=== PATIENT | male | born 1955 | race Hispanic/Latino ===

== ENCOUNTER 2017-06-26 12:35 | Inpatient (IN) | payer MEDICAID ==
[2017-06-26 18:43] VITALS: BMI 28.7
--- NOTE | 2017-06-26 19:52 | CP.PCM.HP ---
History of Present Illness - History of Present Illness History of Present Illness: 62 yo male with history of HTN, HLD and ETOH abuse admitted at [facility] on 2017 because of sudden onset of left sided weakness causing him to fall down. Patient was also noted to have difficulty in speech associated with left facial weakness. CT scan showed acute lacunar infarct on the right putamen. Today he was transferred to [facility] and admitted at Acute Rehab to continue his PT. Present on Admission - Present on Admission Any Indicators Present on Admission: No History of DVT/PE: No History of Uncontrolled Diabetes: No Urinary Catheter: No Decubitus Ulcer Present: No Review of Systems - Review of Systems All systems: reviewed and no additional remarkable complaints except (aside from those mentioned above, 12 point system review were negative by me) Past Patient History - Tetanus Immunizations Tetanus Immunization: Unknown - Past Social History Smoking Status: Former Smoker Alcohol: > 2 Drinks/Day Drugs: Cocaine Home Situation {Lives}: Alone - CARDIAC Hx Hypercholesterolemia: Yes Hx Hypertension: Yes - PULMONARY Hx Respiratory Disorders: No - NEUROLOGICAL Hx Neurological Disorder: No - HEENT Hx Cataracts: Yes (had cataract surgery on left eye 3 months ago) 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) - RENAL Hx Chronic Kidney Disease: No - ENDOCRINE/METABOLIC Hx Endocrine Disorders: No - HEMATOLOGICAL/ONCOLOGICAL Hx Blood Disorders: No - INTEGUMENTARY Hx Dermatological Problems: No - MUSCULOSKELETAL/RHEUMATOLOGICAL Hx Musculoskeletal Disorders: No - GASTROINTESTINAL Hx Gastrointestinal Disorders: No - GENITOURINARY/GYNECOLOGICAL Hx Genitourinary Disorders: No - PSYCHIATRIC Hx Psychophysiologic Disorder: No - SURGICAL HISTORY Hx Cataract Extraction: Yes (3 months ago, left eye) - ANESTHESIA Hx Anesthesia: Yes Hx Anesthesia Reactions: No Meds Allergies/Adverse Reactions: Allergies Allergy/AdvReac Type Severity Reaction Status Date / Time No Known Allergies Allergy Verified 06/26/17 19:34 Physical Exam - Constitutional Appears: No Acute Distress - Head Exam Head Exam: ATRAUMATIC - Eye Exam Eye Exam: Conjunctival injection (left eye), PERRL. absent: Scleral icterus - ENT Exam ENT Exam: Mucous Membranes Moist - Neck Exam Neck exam: Negative for: Meningismus - Respiratory Exam Respiratory Exam: absent: Rales, Rhonchi, Wheezes, Respiratory Distress - Cardiovascular Exam Cardiovascular Exam: REGULAR RHYTHM, +S1, +S2 - GI/Abdominal Exam GI & Abdominal Exam: Soft. absent: Tenderness - Rectal Exam Rectal Exam: Deferred - Neurological Exam Neurological exam: Alert, Oriented x3 - Psychiatric Exam Psychiatric exam: Normal Affect - Skin Skin Exam: Dry, Intact Assessment & Plan - Assessment and Plan (Free Text) Assessment: 62 yo male with history of HTN, HLD and ETOH abuse admitted at [facility] on 2017 because of sudden onset of left sided weakness causing him to fall down. Patient was also noted to have difficulty in speech associated with left facial weakness. CT scan showed acute lacunar infarct on the right putamen. Today he was transferred to [facility] and admitted at Acute Rehab to continue his PT. 1. Acute CVA refer to PT for evaluation and management physiatry consult with Dr Hayes continue ASA, Plavix, statin and BP control 2. HTN BP stable continue Amlodipine and Lisinopril 3. HLD Atorvastatin 80mg PO HS 4. DVT prophylaxis Lovenox 40mg SC daily
[2017-06-27] MEDS ORDERED: Enoxaparin 40 mg Syringe SC SCH (09:00)
[2017-06-27 09:13] LABS: ALB/GLOB RATIO 1.3 (1.0-2.1); ALBUMIN 4.1 g/dL (3.5-5.0); ALT/SGPT 83 U/L (21-72); AST/SGOT 41 U/L (17-59); BLOOD UREA NITROGEN 17 mg/dl (9-20); CALCIUM 9.5 mg/dL (8.4-10.2); GFR AFRICAN-AMERICAN > 60; GFR NON-AFRICAN AMERICAN > 60
[2017-06-27 09:40] LABS: BASO % 0.4 % (0.0-2.0); EOS # 0.2 K/uL (0.0-0.7); EOS % 2.6 % (0.0-4.0); LYMPH # 1.1 K/uL (1.0-4.3); MEAN CELL VOLUME 92.6 fl (80.0-94.0); MEAN CORPUSCULAR HEMOGLOBIN 31.7 pg (27.0-31.0); MEAN CORPUSCULAR HGB CONC 34.2 g/dL (33.0-37.0); MEAN PLATELET VOLUME 9.5 fl (7.2-11.7); MONO # 0.7 K/uL (0.0-0.8); MONO % 11.1 % (0.0-10.0); NEUT # 4.3 K/uL (1.8-7.0); NEUT % 67.9 % (50.0-75.0); RBC 4.41 Mil/uL (4.40-5.90); RED CELL DISTRIBUTION WIDTH 13.2 % (11.5-14.5); WHITE BLOOD COUNT 6.4 K/uL (4.8-10.8)
[2017-06-27] MEDS: Pantoprazole 40 mg EC Tab PO SCH (10:00)
--- NOTE | 2017-06-27 12:53 | PCM.OPOC ---
Physiatry Overall Plan of Care - Overall Plan of Care Estimated Length of Stay in Weeks: 3 Rehab Impairment: Mobility, Gait, Balance, Coordination Etiologic Diagnosis: Cerebrovascular Accident - Anticipated Interventions Physical Therapy:: Yes Occupational Therapy:: Yes Speech Therapy:: Yes Recreational Therapy:: Yes - Therapy Goals Bed Mobility: Independent Ambulation: Supervision Functional Positional Changes:: Independent - Functional Outcomes Functional Outcomes: fair - Discharge Plan Identification of Barriers to Discharge: Home Situation Discharge Destination: Home
--- NOTE | 2017-06-27 12:55 | CP.PCM.CON ---
History of Present Illness - History of Present Illness History of Present Illness: 62 year old admitted for acute rehab with diagnosis of Cva and left sided weakness, With PMh of HTn, Non compliance and Etoh abuse Review of Systems - Musculoskeletal Musculoskeletal: Muscle Weakness - Neurological Neurological: Weakness Past Patient History - Tetanus Immunizations Tetanus Immunization: Unknown - Past Medical History & Family History Past Medical History?: Yes - Past Social History Smoking Status: Former Smoker Alcohol: > 2 Drinks/Day Drugs: Cocaine Home Situation {Lives}: Alone - CARDIAC Hx Hypercholesterolemia: Yes Hx Hypertension: Yes - PULMONARY Hx Respiratory Disorders: No - NEUROLOGICAL Hx Neurological Disorder: No - HEENT Hx Cataracts: Yes (had cataract surgery on left eye 3 months ago) 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) - RENAL Hx Chronic Kidney Disease: No - ENDOCRINE/METABOLIC Hx Endocrine Disorders: No - HEMATOLOGICAL/ONCOLOGICAL Hx Blood Disorders: No - INTEGUMENTARY Hx Dermatological Problems: No - MUSCULOSKELETAL/RHEUMATOLOGICAL Hx Musculoskeletal Disorders: No - GASTROINTESTINAL Hx Gastrointestinal Disorders: No - GENITOURINARY/GYNECOLOGICAL Hx Genitourinary Disorders: No - PSYCHIATRIC Hx Psychophysiologic Disorder: No - SURGICAL HISTORY Hx Cataract Extraction: Yes (3 months ago, left eye) - ANESTHESIA Hx Anesthesia: Yes Hx Anesthesia Reactions: No Meds Allergies/Adverse Reactions: Allergies Allergy/AdvReac Type Severity Reaction Status Date / Time No Known Allergies Allergy Verified 06/26/17 19:34 - Medications Medications: Current Medications Amlodipine Besylate (Norvasc) 10 mg PO DAILY [facility] Last Admin: 06/27/17 08:10 Dose: 10 mg Aspirin (Ecotrin) 81 mg PO DAILY [facility] Last Admin: 06/27/17 08:09 Dose: 81 mg Atorvastatin Calcium (Lipitor) 80 mg PO HS [facility] Last Admin: 06/26/17 22:21 Dose: 80 mg Clopidogrel Bisulfate (Plavix) 75 mg PO DAILY [facility] Last Admin: 06/27/17 08:11 Dose: 75 mg Docusate Sodium (Colace) 100 mg PO BID [facility] Last Admin: 06/27/17 08:09 Dose: 100 mg Enoxaparin Sodium (Lovenox) 40 mg SC DAILY [facility] PRN Reason: Protocol Ibuprofen (Motrin Tab) 400 mg PO Q6 PRN PRN Reason: pain 4-10 Lisinopril (Zestril) 10 mg PO DAILY [facility] Last Admin: 06/27/17 08:11 Dose: 10 mg Pantoprazole Sodium (Protonix Ec Tab) 40 mg PO DAILY [facility] Physical Exam - Head Exam Head Exam: ATRAUMATIC, NORMAL INSPECTION, NORMOCEPHALIC - Eye Exam Eye Exam: EOMI, Normal appearance Pupil Exam: NORMAL ACCOMODATION, PERRL - ENT Exam ENT Exam: Mucous Membranes Moist, Normal Exam - Neck Exam Neck exam: Positive for: Normal Inspection - Respiratory Exam Respiratory Exam: Clear to Auscultation Bilateral, NORMAL BREATHING PATTERN - Cardiovascular Exam Cardiovascular Exam: REGULAR RHYTHM - GI/Abdominal Exam GI & Abdominal Exam: Normal Bowel Sounds - Rectal Exam Rectal Exam: NORMAL INSPECTION - Exam External exam: NORMAL EXTERNAL EXAM - Extremities Exam Extremities exam: Positive for: normal inspection Additional comments: left sided weakness - Back Exam Back exam: NORMAL INSPECTION - Neurological Exam Neurological exam: Alert - Psychiatric Exam Psychiatric exam: Normal Mood - Skin Skin Exam: Dry, Normal Color Results - Vital Signs Recent Vital Signs: Last Vital Signs Temp 98.4 F 06/27/17 08:47 Pulse 64 06/27/17 08:47 Resp 19 06/27/17 08:47 BP 133/72 06/27/17 08:47 Pulse Ox 97 06/27/17 08:47 - Labs Result Diagrams: 06/27/17 04:00 06/27/17 04:00 Labs: Laboratory Results - last 24 hr 06/27/17 06/27/17 04:00 04:00 WBC 6.4 RBC 4.41 Hgb 14.0 Hct 40.8 MCV 92.6 MCH 31.7 H MCHC 34.2 RDW 13.2 Plt Count 219 MPV 9.5 Neut % (Auto) 67.9 Lymph % (Auto) 18.0 L Oliver % (Auto) 11.1 H Eos % (Auto) 2.6 Baso % (Auto) 0.4 Neut # (Auto) 4.3 Lymph # (Auto) 1.1 Oliver # (Auto) 0.7 Eos # (Auto) 0.2 Baso # (Auto) 0.0 Sodium 140 Potassium 4.4 Chloride 98 Carbon Dioxide 29 Anion Gap 17 BUN 17 Creatinine 0.7 L Est GFR ( Amer) > 60 Est GFR (Non-Af Amer) > 60 Random Glucose 110 Calcium 9.5 Total Bilirubin 0.5 AST 41 ALT 83 H Alkaline Phosphatase 53 Total Protein 7.2 Albumin 4.1 Globulin 3.0 Albumin/Globulin Ratio 1.3 Assessment & Plan (1) CVA (cerebral vascular accident) Assessment and Plan: plan for physical, occupational, rec and speech therapy for range of motion, strengthening transfers and gait training. covering for Dr Abigail Hayes to follow patient Status: Acute
[2017-06-27] MEDS: Enoxaparin 40 mg Syringe SC SCH (13:00)
[2017-06-27] MEDS: Ammonium Lactate 12% Cream (140 g) TOP SCH (17:58)
--- NOTE | 2017-06-27 19:56 | CP.PCM.PN ---
Subjective - Date & Time of Evaluation Date of Evaluation: 06/27/17 Time of Evaluation: 14:00 - Subjective Subjective: no acute complaints at present resting in bed Objective - Vital Signs/Intake and Output Vital Signs (last 24 hours): Temp Pulse Resp BP Pulse Ox 98.4 F 64 19 133/72 97 06/27/17 08:47 06/27/17 08:47 06/27/17 08:47 06/27/17 08:47 06/27/17 08:47 - Medications Medications: Current Medications Amlodipine Besylate (Norvasc) 10 mg PO DAILY [facility] Last Admin: 06/27/17 08:10 Dose: 10 mg Aspirin (Ecotrin) 81 mg PO DAILY [facility] Last Admin: 06/27/17 08:09 Dose: 81 mg Atorvastatin Calcium (Lipitor) 80 mg PO HS [facility] Last Admin: 06/26/17 22:21 Dose: 80 mg Clopidogrel Bisulfate (Plavix) 75 mg PO DAILY [facility] Last Admin: 06/27/17 08:11 Dose: 75 mg Docusate Sodium (Colace) 100 mg PO BID [facility] Last Admin: 06/27/17 17:58 Dose: 100 mg Enoxaparin Sodium (Lovenox) 40 mg SC DAILY [facility] PRN Reason: Protocol Last Admin: 06/27/17 13:00 Dose: 40 mg Ibuprofen (Motrin Tab) 400 mg PO Q6 PRN PRN Reason: pain 4-10 Last Admin: 06/27/17 16:14 Dose: 400 mg Lactic Acid (Lac-Hydrin 12% Cream (140 G)) 1 ea TOP BID [facility] Last Admin: 06/27/17 17:58 Dose: 1 applic Lisinopril (Zestril) 10 mg PO DAILY [facility] Last Admin: 06/27/17 08:11 Dose: 10 mg Pantoprazole Sodium (Protonix Ec Tab) 40 mg PO DAILY [facility] Last Admin: 06/27/17 10:00 Dose: 40 mg - Labs Labs: 06/27/17 04:00 06/27/17 04:00 - Head Exam Head Exam: ATRAUMATIC, NORMAL INSPECTION, NORMOCEPHALIC - Eye Exam Eye Exam: EOMI, Normal appearance Pupil Exam: NORMAL ACCOMODATION, PERRL - ENT Exam ENT Exam: Mucous Membranes Moist, Normal Exam - Neck Exam Neck Exam: Full ROM, Normal Inspection - Respiratory Exam Respiratory Exam: Clear to Ausculation Bilateral, NORMAL BREATHING PATTERN - Cardiovascular Exam Cardiovascular Exam: REGULAR RHYTHM - GI/Abdominal Exam GI & Abdominal Exam: Soft, Normal Bowel Sounds - Rectal Exam Rectal Exam: NORMAL INSPECTION - Exam External exam: NORMAL EXTERNAL EXAM - Extremities Exam Extremities Exam: Full ROM, Normal Capillary Refill, Normal Inspection - Back Exam Back Exam: NORMAL INSPECTION - Neurological Exam Neurological Exam: Alert, Awake Neuro motor strength exam: Left Upper Extremity: 2/1, Right Upper Extremity: 3, Left Lower Extremity: 2/1, Right Lower Extremity: 3 - Psychiatric Exam Psychiatric exam: Normal Affect, Normal Mood - Skin Skin Exam: Normal Color Assessment and Plan (1) CVA (cerebral vascular accident) Assessment & Plan: plan for physical, occupational rec and speech therapy covering for Dr Hayes Status: Acute
[2017-06-28] MEDS: Enoxaparin 40 mg Syringe SC SCH (09:42)
[2017-06-28] MEDS: Ammonium Lactate 12% Cream (140 g) TOP SCH ×2 (09:45→16:31)
[2017-06-28] MEDS: Pantoprazole 40 mg EC Tab PO SCH (09:47)
[2017-06-29] MEDS: Enoxaparin 40 mg Syringe SC SCH (08:47)
[2017-06-29] MEDS: Pantoprazole 40 mg EC Tab PO SCH (08:48)
[2017-06-29] MEDS: Ammonium Lactate 12% Cream (140 g) TOP SCH ×2 (08:53→16:30)
--- NOTE | 2017-06-29 12:52 | CP.PCM.PN ---
Subjective - Date & Time of Evaluation Date of Evaluation: 06/29/17 Time of Evaluation: 12:52 - Subjective Subjective: pt doing well no complaints at this time denies cp sob n/v/c/d hd stable nad Objective - Vital Signs/Intake and Output Vital Signs (last 24 hours): Temp Pulse Resp BP Pulse Ox 98.3 F 94 H 20 141/74 97 06/29/17 10:00 06/29/17 10:00 06/29/17 10:00 06/29/17 10:00 06/29/17 10:00 Intake and Output: Vitals Reviewed GEN: WDWN, alert, cooperative HEENT: NCAT, PERRL, EOMI HEART: RRR, +S1S2, NO MRG LUNG: CTAB, NO WRR ABD: soft, NT, ND, No HSM, No masses EXT: normal pedal pulses, normal capillary refill NEURO: awake, alert SKIN: warm, dry PSYCH: normal mood, normal affect - Medications Medications: Current Medications Amlodipine Besylate (Norvasc) 10 mg PO DAILY [facility] Last Admin: 06/29/17 08:47 Dose: 10 mg Aspirin (Ecotrin) 81 mg PO DAILY [facility] Last Admin: 06/29/17 08:47 Dose: 81 mg Atorvastatin Calcium (Lipitor) 80 mg PO HS [facility] Last Admin: 06/28/17 21:09 Dose: 80 mg Clopidogrel Bisulfate (Plavix) 75 mg PO DAILY [facility] Last Admin: 06/29/17 08:47 Dose: 75 mg Docusate Sodium (Colace) 100 mg PO BID [facility] Last Admin: 06/29/17 08:46 Dose: 100 mg Enoxaparin Sodium (Lovenox) 40 mg SC DAILY [facility] PRN Reason: Protocol Last Admin: 06/29/17 08:47 Dose: 40 mg Ibuprofen (Motrin Tab) 400 mg PO Q6 PRN PRN Reason: pain 4-10 Last Admin: 06/29/17 08:48 Dose: 400 mg Lactic Acid (Lac-Hydrin 12% Cream (140 G)) 1 ea TOP BID [facility] Last Admin: 06/29/17 08:53 Dose: 1 applic Lisinopril (Zestril) 10 mg PO DAILY [facility] Last Admin: 06/29/17 08:48 Dose: 10 mg Pantoprazole Sodium (Protonix Ec Tab) 40 mg PO DAILY [facility] Last Admin: 06/29/17 08:48 Dose: 40 mg - Labs Labs: 06/27/17 04:00 06/27/17 04:00 Assessment and Plan - Assessment and Plan (Free Text) Plan: 62 yo male with history of HTN, HLD and ETOH abuse admitted at [facility] on 2017 because of sudden onset of left sided weakness causing him to fall down. Patient was also noted to have difficulty in speech associated with left facial weakness. CT scan showed acute lacunar infarct on the right putamen. Today he was transferred to [facility] and admitted at Acute Rehab to continue his PT. 1. Acute CVA refer to PT for evaluation and management physiatry consult with Dr Hayes continue ASA, Plavix, statin and BP control 2. HTN BP stable continue Amlodipine and Lisinopril 3. HLD Atorvastatin 80mg PO HS 4. DVT prophylaxis Lovenox 40mg SC daily
[2017-06-29] MEDS: PrednisoLONE 1% OPTH SUSP OS SCH ×2 (18:18→23:35)
--- NOTE | 2017-06-29 18:42 | CP.PCM.PN ---
Subjective - Date & Time of Evaluation Date of Evaluation: 06/29/17 Time of Evaluation: 18:41 - Subjective Subjective: Patient seen in the room further return of the left UE left Lower extremity is anti-gravity in good spirits and felt bolstered by his progress in therapies continue current care no sob/cp Objective - Vital Signs/Intake and Output Vital Signs (last 24 hours): Temp Pulse Resp BP Pulse Ox 98.3 F 94 H 20 141/74 97 06/29/17 10:00 06/29/17 10:00 06/29/17 10:00 06/29/17 10:00 06/29/17 10:00 - Medications Medications: Current Medications Amlodipine Besylate (Norvasc) 10 mg PO DAILY [facility] Last Admin: 06/29/17 08:47 Dose: 10 mg Aspirin (Ecotrin) 81 mg PO DAILY [facility] Last Admin: 06/29/17 08:47 Dose: 81 mg Atorvastatin Calcium (Lipitor) 80 mg PO HS [facility] Last Admin: 06/28/17 21:09 Dose: 80 mg Clopidogrel Bisulfate (Plavix) 75 mg PO DAILY [facility] Last Admin: 06/29/17 08:47 Dose: 75 mg Docusate Sodium (Colace) 100 mg PO BID [facility] Last Admin: 06/29/17 16:30 Dose: Not Given Enoxaparin Sodium (Lovenox) 40 mg SC DAILY [facility] PRN Reason: Protocol Last Admin: 06/29/17 08:47 Dose: 40 mg Ibuprofen (Motrin Tab) 400 mg PO Q6 PRN PRN Reason: pain 4-10 Last Admin: 06/29/17 08:48 Dose: 400 mg Lactic Acid (Lac-Hydrin 12% Cream (140 G)) 1 ea TOP BID [facility] Last Admin: 06/29/17 16:30 Dose: 1 applic Lisinopril (Zestril) 10 mg PO DAILY [facility] Last Admin: 06/29/17 08:48 Dose: 10 mg Pantoprazole Sodium (Protonix Ec Tab) 40 mg PO DAILY [facility] Last Admin: 06/29/17 08:48 Dose: 40 mg Prednisolone Acetate (Pred Forte 1% Opht Susp) 1 drop OS Q6 [facility] Last Admin: 06/29/17 18:18 Dose: 1 drop - Labs Labs: 06/27/17 04:00 06/27/17 04:00
[2017-06-30] MEDS: PrednisoLONE 1% OPTH SUSP OS SCH ×4 (06:13→23:50)
[2017-06-30 06:35] LABS: HEMOGLOBIN 13.7 g/dL (12.0-18.0); MEAN CELL VOLUME 91.1 fl (80.0-94.0); MEAN CORPUSCULAR HEMOGLOBIN 32.1 pg (27.0-31.0); MEAN CORPUSCULAR HGB CONC 35.3 g/dL (33.0-37.0); RBC 4.25 Mil/uL (4.40-5.90); RED CELL DISTRIBUTION WIDTH 13.3 % (11.5-14.5); WHITE BLOOD COUNT 6.3 K/uL (4.8-10.8)
[2017-06-30 06:43] LABS: BLOOD UREA NITROGEN 17 mg/dl (9-20); CALCIUM 9.2 mg/dL (8.4-10.2); GFR AFRICAN-AMERICAN > 60; GFR NON-AFRICAN AMERICAN > 60
[2017-06-30] MEDS: Enoxaparin 40 mg Syringe SC SCH (08:21)
[2017-06-30] MEDS: Pantoprazole 40 mg EC Tab PO SCH (08:22)
[2017-06-30] MEDS: Ammonium Lactate 12% Cream (140 g) TOP SCH ×2 (09:23→16:56)
--- NOTE | 2017-06-30 13:20 | PSY.TMCNF ---
Nursing - Vital Signs Vital Signs (Last 8 hours): Vital Signs 06/30/17 06/30/17 06/30/17 08:21 08:22 08:27 Temperature 98.2 F Pulse Rate 67 67 Blood Pressure 133/66 133/66 Pain: 0 - Medications/Other Issues Comment: Pt at moderate nutritional risk. goasl:1. Pt to consume 75-100% of meals. Follow-up due on 07/04/2017 - Bladder Management Bladder Pattern: Normal Voiding Method: Toilet, Urinal - Bowel Management Bowel Pattern: Normal - Goals/Time Frame Comments: Pt was seen awake and alert sitting in his wheelchair in the hallway. Pt agreeable to participate in session and was brought to the recreation room. Pt was AAOx4 and reported that he lives in basement of friends home. Pt reported that he does not cook as there is no oven located in apartment and will either order food or receive food from friend. Pt reported he plans to not return to prior living situation. Pt expressed minimal leisure interests such as watching television and taking walks in the neighborhood. Pt reported he was not working or driving [employer]. Pt utilize public transportation. Pt stated he was a [employer] and stated, "No jobs, nobody wants to hire me." Pt participated in connect four task and required min verbal and visual cues for problem solving. Pt's mood was stable-positive although is impulsive. Pt returned to room at end of session, placed call rushing within reach. Physical Therapy - Bed Mobility Bed Mobility: Contact Guard - Transfers Wheelchair to Mat: Minimal Assistance Sit to Stand: Minimal Assistance - Ambulation Level of Assistance: Minimal Assistance Distance (ft.): 150 Assistive Devices: Narrow base quad cane - Stair Negotiation Stairs: Level of Assistance: Verbal Cues, Minimal Assistance Number of Stairs: 6 Stairs: Assistive Devices: Left Handrail, Right Handrail - Standing Balance Static Stand: Contact Guard Assist Dynamic Stand: Minimal Assistance - Pain Management Techniques: Medication - Insight/Carryover Insight/Carryover: Fair - Patient/Family Education Comment: CVA recovery, safety, d/c recommendations - Assessment/Plan Assessment: Pt actively participating in PT tx sessions focusing on BLE strengthening exercises, balance and endurance activities, and functional mobility training. Pt currently requires CGA for bed mobility. min A for transfers, min A for gait with NBQC, min A for stair negotiation. Mild impulsivity noted. Pt will continue to benefit from skilled PT intervention to address deficits, reduce fall risk, and maximize functional independence. Barriers to home d/c: lack of social support - Goals Timeframe: 3 weeks Goals: Sit < > supine mod I. Sit < > stand mod I with NBQC. Pt wwill ambulate 250 ft on even/uneven surfaces mod I with NBQC. Pt will ascend/descend flight of stairs mod I with handrail - Provider Therapist: kelvin License Number: [id number] Occupational Therapy - Arousal/Attention/Orientation Patient Orientation: Person, Place, Time, Appropriate to Age, Appropriate to Situation - ADL/IADL Self Feeding: Supervision, Set-up Help Grooming: Minimal Assistance Dressing-Upper Extremity: Minimal Assistance Dressing-Lower Extremity: Minimal Assistance - Transfers Wheelchair to Bed Transfers: Minimal Assistance Toilet Transfers: Minimal Assistance Comment: tub/shower transfers to be assessed. - Upper Extremity Status Left Upper Extremity Comment: PROM WFL. AROM impaired. - Pain Alleviating Techniques: Medication - Insight/Carryover Insight/Carryover: Fair - Patient/Family Education Comment: CVA recovery, safety, d/c recommendations - Assessment/Plan Assessment: Pt actively participating in PT tx sessions focusing on BLE strengthening exercises, balance and endurance activities, and functional mobility training. Pt currently requires CGA for bed mobility. min A for transfers, min A for gait with NBQC, min A for stair negotiation. Mild impulsivity noted. Pt will continue to benefit from skilled PT intervention to address deficits, reduce fall risk, and maximize functional independence. Barriers to home d/c: lack of social support - Goals Timeframe: 3 weeks Goals: Sit < > supine mod I. Sit < > stand mod I with NBQC. Pt wwill ambulate 250 ft on even/uneven surfaces mod I with NBQC. Pt will ascend/descend flight of stairs mod I with handrail - Provider Therapist: KATLYN Grewal/[facility] - Consult Information Patient on Program: Yes Medical Diagnosis: CVA Treatment Diagnosis: -mild dysarthria. -mild-moderate cognitive-linguistic deficits. -mild oral/suspected mild pharyngeal dysphagia - Assessment Memory Impairment: Moderate Speech/Articulation Impairment: Mild Dysphagia/Swallowing Impairment: Mild - Plan Assessment: Pt actively participating in PT tx sessions focusing on BLE strengthening exercises, balance and endurance activities, and functional mobility training. Pt currently requires CGA for bed mobility. min A for transfers, min A for gait with NBQC, min A for stair negotiation. Mild impulsivity noted. Pt will continue to benefit from skilled PT intervention to address deficits, reduce fall risk, and maximize functional independence. Barriers to home d/c: lack of social support - Provider Therapist: Violet Cash License Number: [id number] Recreational Therapy - Participation Participation: Participates in Individual and/or Group Sessions - Attendance Attendance: 3-5 times per week - Activities Leisure Activities: Television - Socialization Level of Socialization: Initiates/interacts freely with care givers and peer - Diversional Time Diversional Time: television - Assessment Assessment/Plan: Pt actively participating in PT tx sessions focusing on BLE strengthening exercises, balance and endurance activities, and functional mobility training. Pt currently requires CGA for bed mobility. min A for transfers, min A for gait with NBQC, min A for stair negotiation. Mild impulsivity noted. Pt will continue to benefit from skilled PT intervention to address deficits, reduce fall risk, and maximize functional independence. Barriers to home d/c: lack of social support - Provider Therapist: Eda Marinelli, [facility] #[id number] Nutrition - Current Diet Current Diet/ Supplement/ Feedings: Heart Healthy:2 gram Na diet - Appetite Percent Meal Consumed: 75-100% - Assessment/Goals/Time Frame Assessment/Goals/Time Frame: Pt at moderate nutritional risk. goasl:1. Pt to consume 75-100% of meals. Follow-up due on 07/04/2017 - Provider Provider: Dagmar Leblanc RD Rehabilitation Plan - Treatment Plan Treatment Plan: Physical Therapy, Occupational Therapy, Speech, Dietary, Patient /Family Education - Discharge Plan Estimated Date of Discharge: 07/07/17 Discharge to: Subacute
--- NOTE | 2017-06-30 13:38 | CP.PCM.PN ---
Subjective - Date & Time of Evaluation Date of Evaluation: 06/30/17 Time of Evaluation: 13:37 - Subjective Subjective: Patient seen in the room, doing ok left HP no dizziness or pain continue therapies will land up to [facility] instead of 07/12 will request 07/07/17 LOS here for that reason Objective - Vital Signs/Intake and Output Vital Signs (last 24 hours): Temp Pulse Resp BP Pulse Ox 98.2 F 67 19 133/66 98 06/30/17 08:27 06/30/17 08:22 06/29/17 20:00 06/30/17 08:22 06/29/17 20:00 - Medications Medications: Current Medications Amlodipine Besylate (Norvasc) 10 mg PO DAILY [facility] Last Admin: 06/30/17 08:22 Dose: 10 mg Aspirin (Ecotrin) 81 mg PO DAILY [facility] Last Admin: 06/30/17 08:21 Dose: 81 mg Atorvastatin Calcium (Lipitor) 80 mg PO HS [facility] Last Admin: 06/29/17 22:21 Dose: 80 mg Clopidogrel Bisulfate (Plavix) 75 mg PO DAILY [facility] Last Admin: 06/30/17 08:22 Dose: 75 mg Docusate Sodium (Colace) 100 mg PO BID [facility] Last Admin: 06/30/17 08:23 Dose: 100 mg Ibuprofen (Motrin Tab) 400 mg PO Q6 PRN PRN Reason: pain 4-10 Last Admin: 06/30/17 08:27 Dose: 400 mg Lactic Acid (Lac-Hydrin 12% Cream (140 G)) 1 ea TOP BID [facility] Last Admin: 06/30/17 09:23 Dose: 1 applic Lisinopril (Zestril) 10 mg PO DAILY [facility] Last Admin: 06/30/17 08:21 Dose: 10 mg Pantoprazole Sodium (Protonix Ec Tab) 40 mg PO DAILY [facility] Last Admin: 06/30/17 08:22 Dose: 40 mg Prednisolone Acetate (Pred Forte 1% Opht Susp) 1 drop OS Q6 [facility] Last Admin: 06/30/17 12:36 Dose: 1 drop - Labs Labs: 06/30/17 05:20 06/30/17 05:20
[2017-07-01] MEDS ORDERED: guaiFENesin 200 mg/10 ml Syrup UD PO ONE (01:31)
[2017-07-01] MEDS: PrednisoLONE 1% OPTH SUSP OS SCH ×4 (06:45→23:00)
[2017-07-01] MEDS: Enoxaparin 40 mg Syringe SC SCH (08:11)
[2017-07-01] MEDS: Ammonium Lactate 12% Cream (140 g) TOP SCH ×2 (08:11→16:53)
[2017-07-01] MEDS: Pantoprazole 40 mg EC Tab PO SCH (08:15)
--- NOTE | 2017-07-01 16:14 | CP.PCM.PN ---
Subjective - Date & Time of Evaluation Date of Evaluation: 07/01/17 Time of Evaluation: 11:30 - Subjective Subjective: Patient seen and examined. Complained of being constipated. Had BM yesterday but complained it being really hard Objective - Vital Signs/Intake and Output Vital Signs (last 24 hours): Temp Pulse Resp BP Pulse Ox 98.3 F 60 21 131/70 97 07/01/17 08:45 07/01/17 08:45 07/01/17 08:45 07/01/17 08:45 07/01/17 08:45 - Medications Medications: Current Medications Amlodipine Besylate (Norvasc) 10 mg PO DAILY [facility] Last Admin: 07/01/17 08:16 Dose: 10 mg Aspirin (Ecotrin) 81 mg PO DAILY [facility] Last Admin: 07/01/17 08:12 Dose: 81 mg Atorvastatin Calcium (Lipitor) 80 mg PO HS [facility] Last Admin: 06/30/17 21:12 Dose: 80 mg Clopidogrel Bisulfate (Plavix) 75 mg PO DAILY [facility] Last Admin: 07/01/17 08:12 Dose: 75 mg Docusate Sodium (Colace) 100 mg PO BID [facility] Last Admin: 07/01/17 08:12 Dose: 100 mg Enoxaparin Sodium (Lovenox) 40 mg SC DAILY [facility] PRN Reason: Protocol Last Admin: 07/01/17 08:11 Dose: 40 mg Ibuprofen (Motrin Tab) 400 mg PO Q6 PRN PRN Reason: pain 4-10 Last Admin: 07/01/17 08:15 Dose: 400 mg Lactic Acid (Lac-Hydrin 12% Cream (140 G)) 1 ea TOP BID [facility] Last Admin: 07/01/17 08:11 Dose: 1 applic Lisinopril (Zestril) 10 mg PO DAILY [facility] Last Admin: 07/01/17 08:12 Dose: 10 mg Pantoprazole Sodium (Protonix Ec Tab) 40 mg PO DAILY [facility] Last Admin: 07/01/17 08:15 Dose: 40 mg Prednisolone Acetate (Pred Forte 1% Opht Susp) 1 drop OS Q6 [facility] Last Admin: 07/01/17 12:29 Dose: 1 drop - Labs Labs: 06/30/17 05:20 06/30/17 05:20 - Constitutional Appears: No Acute Distress - Head Exam Head Exam: ATRAUMATIC - Eye Exam Eye Exam: PERRL. absent: Scleral icterus - ENT Exam ENT Exam: Mucous Membranes Moist - Neck Exam Neck Exam: absent: Meningismus - Respiratory Exam Respiratory Exam: absent: Rales, Rhonchi, Wheezes, Respiratory Distress - Cardiovascular Exam Cardiovascular Exam: REGULAR RHYTHM, +S1, +S2 - GI/Abdominal Exam GI & Abdominal Exam: Soft. absent: Tenderness - Rectal Exam Rectal Exam: Deferred - Neurological Exam Neurological Exam: Alert, Oriented x3 - Psychiatric Exam Psychiatric exam: Normal Affect - Skin Skin Exam: Dry, Intact Assessment and Plan - Assessment and Plan (Free Text) Assessment: 62 yo male with history of HTN, HLD and ETOH abuse admitted at [facility] on 2017 because of sudden onset of left sided weakness causing him to fall down. Patient was also noted to have difficulty in speech associated with left facial weakness. CT scan showed acute lacunar infarct on the right putamen. Today he was transferred to [facility] and admitted at [facility] to continue his PT. 1. Acute CVA continue PT/OT continue ASA, Plavix, statin and BP control 2. HTN BP stable continue Amlodipine and Lisinopril 3. HLD Atorvastatin 80mg PO HS 4. DVT prophylaxis Lovenox 40mg SC daily
--- NOTE | 2017-07-01 18:39 | CP.PCM.PN ---
Subjective - Date & Time of Evaluation Date of Evaluation: 07/01/17 Time of Evaluation: 18:37 - Subjective Subjective: Patient seen in the room still feels that he is not good with gait and balance denies sob/cp or fever improving left HP continue current care Objective - Vital Signs/Intake and Output Vital Signs (last 24 hours): Temp Pulse Resp BP Pulse Ox 98.3 F 60 21 131/70 97 07/01/17 08:45 07/01/17 08:45 07/01/17 08:45 07/01/17 08:45 07/01/17 08:45 - Medications Medications: Current Medications Amlodipine Besylate (Norvasc) 10 mg PO DAILY [facility] Last Admin: 07/01/17 08:16 Dose: 10 mg Aspirin (Ecotrin) 81 mg PO DAILY [facility] Last Admin: 07/01/17 08:12 Dose: 81 mg Atorvastatin Calcium (Lipitor) 80 mg PO HS [facility] Last Admin: 06/30/17 21:12 Dose: 80 mg Clopidogrel Bisulfate (Plavix) 75 mg PO DAILY [facility] Last Admin: 07/01/17 08:12 Dose: 75 mg Docusate Sodium (Colace) 100 mg PO BID [facility] Last Admin: 07/01/17 16:52 Dose: 100 mg Enoxaparin Sodium (Lovenox) 40 mg SC DAILY [facility] PRN Reason: Protocol Last Admin: 07/01/17 08:11 Dose: 40 mg Ibuprofen (Motrin Tab) 400 mg PO Q6 PRN PRN Reason: pain 4-10 Last Admin: 07/01/17 08:15 Dose: 400 mg Lactic Acid (Lac-Hydrin 12% Cream (140 G)) 1 ea TOP BID [facility] Last Admin: 07/01/17 16:53 Dose: 1 applic Lisinopril (Zestril) 10 mg PO DAILY [facility] Last Admin: 07/01/17 08:12 Dose: 10 mg Pantoprazole Sodium (Protonix Ec Tab) 40 mg PO DAILY [facility] Last Admin: 07/01/17 08:15 Dose: 40 mg Prednisolone Acetate (Pred Forte 1% Opht Susp) 1 drop OS Q6 [facility] Last Admin: 07/01/17 16:59 Dose: 1 drop - Labs Labs: 06/30/17 05:20 06/30/17 05:20
[2017-07-01] MEDS: guaiFENesin 100 mg/5 ml Syrup UD PO PRN (21:02)
[2017-07-02] MEDS: PrednisoLONE 1% OPTH SUSP OS SCH ×4 (05:45→23:10)
[2017-07-02] MEDS: Ammonium Lactate 12% Cream (140 g) TOP SCH ×2 (08:23→17:29)
[2017-07-02] MEDS: Enoxaparin 40 mg Syringe SC SCH (08:24)
[2017-07-02] MEDS: Pantoprazole 40 mg EC Tab PO SCH (08:25)
[2017-07-03 06:36] LABS: HEMOGLOBIN 14.1 g/dL (12.0-18.0); MEAN CELL VOLUME 92.6 fl (80.0-94.0); MEAN CORPUSCULAR HEMOGLOBIN 31.9 pg (27.0-31.0); MEAN CORPUSCULAR HGB CONC 34.4 g/dL (33.0-37.0); RBC 4.41 Mil/uL (4.40-5.90); RED CELL DISTRIBUTION WIDTH 13.4 % (11.5-14.5); WHITE BLOOD COUNT 9.5 K/uL (4.8-10.8)
[2017-07-03 06:39] LABS: BLOOD UREA NITROGEN 18 mg/dl (9-20); CALCIUM 9.3 mg/dL (8.4-10.2); GFR AFRICAN-AMERICAN > 60; GFR NON-AFRICAN AMERICAN > 60
[2017-07-03] MEDS: PrednisoLONE 1% OPTH SUSP OS SCH ×4 (06:39→23:12)
--- NOTE | 2017-07-03 07:57 | CP.PCM.CON ---
History of Present Illness - History of Present Illness History of Present Illness: Pt is a 62 year old male admitted to [facility] and referred to the content writer for evaluaion. Med history positive for a CVA. Pt reported past CVA's, HTN, and increased cholesterol. See medical record for complete medical history and medications. Social History: pt lives alone. He from his 5- 6years ago. Pt has two children. He has a daughter in [place] and son in [place] (no contatc). PT reported being helped by his in the home. Ed/ Voc: pt born in the [facility], in the 30+ years. Psych history denied. Pt reported a history of alcohol abuse/drug use-cocainie. No rehab's or detox"s. Pt spoke of his depression with the CVA and decline in functioning and independence. MSE: pt alert, oriented x2, relevant/cohrent, no psychosis, affect constricted, mood depressed with current status. Education provided and strategies introduced to reduce distress. 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) - RENAL Hx Chronic Kidney Disease: No - ENDOCRINE/METABOLIC Hx Endocrine Disorders: No - HEMATOLOGICAL/ONCOLOGICAL Hx Blood Disorders: No - INTEGUMENTARY Hx Dermatological Problems: No - MUSCULOSKELETAL/RHEUMATOLOGICAL Hx Musculoskeletal Disorders: No - GASTROINTESTINAL Hx Gastrointestinal Disorders: No - GENITOURINARY/GYNECOLOGICAL Hx Genitourinary Disorders: No - PSYCHIATRIC Hx Psychophysiologic Disorder: No - SURGICAL HISTORY Hx Cataract Extraction: Yes (3 months ago, left eye) - ANESTHESIA Hx Anesthesia: Yes Hx Anesthesia Reactions: No Meds Allergies/Adverse Reactions: Allergies Allergy/AdvReac Type Severity Reaction Status Date / Time No Known Allergies Allergy Verified 06/26/17 19:34 - Medications Medications: Current Medications Amlodipine Besylate (Norvasc) 10 mg PO DAILY [facility] Last Admin: 07/02/17 08:25 Dose: 10 mg Aspirin (Ecotrin) 81 mg PO DAILY [facility] Last Admin: 07/02/17 08:24 Dose: 81 mg Atorvastatin Calcium (Lipitor) 80 mg PO HS [facility] Last Admin: 07/02/17 21:10 Dose: 80 mg Clopidogrel Bisulfate (Plavix) 75 mg PO DAILY [facility] Last Admin: 07/02/17 08:23 Dose: 75 mg Docusate Sodium (Colace) 100 mg PO BID [facility] Last Admin: 07/02/17 17:29 Dose: 100 mg Enoxaparin Sodium (Lovenox) 40 mg SC DAILY [facility] PRN Reason: Protocol Last Admin: 07/02/17 08:24 Dose: 40 mg Guaifenesin (Robitussin) 100 mg PO Q6 PRN PRN Reason: Cough Last Admin: 07/01/17 21:02 Dose: 100 mg Ibuprofen (Motrin Tab) 400 mg PO Q6 PRN PRN Reason: pain 4-10 Last Admin: 07/01/17 20:55 Dose: 400 mg Lactic Acid (Lac-Hydrin 12% Cream (140 G)) 1 ea TOP BID [facility] Last Admin: 07/02/17 17:29 Dose: 1 applic Lisinopril (Zestril) 10 mg PO DAILY [facility] Last Admin: 07/02/17 08:23 Dose: 10 mg Pantoprazole Sodium (Protonix Ec Tab) 40 mg PO DAILY [facility] Last Admin: 07/02/17 08:25 Dose: 40 mg Prednisolone Acetate (Pred Forte 1% Opht Susp) 1 drop OS Q6 [facility] Last Admin: 07/03/17 06:39 Dose: 1 drop Results - Vital Signs Recent Vital Signs: Last Vital Signs Temp 98.1 F 07/02/17 20:46 Pulse 88 07/02/17 20:46 Resp 20 07/02/17 20:46 BP 128/62 07/02/17 20:46 Pulse Ox 97 07/02/17 20:46 - Labs Result Diagrams: 07/03/17 05:20 07/03/17 05:20 Labs: Laboratory Results - last 24 hr 07/03/17 07/03/17 05:20 05:20 WBC 9.5 D RBC 4.41 Hgb 14.1 Hct 40.8 MCV 92.6 MCH 31.9 H MCHC 34.4 RDW 13.4 Plt Count 234 Sodium 140 Potassium 3.9 Chloride 95 L Carbon Dioxide 28 Anion Gap 21 H BUN 18 Creatinine 0.8 Est GFR ( Amer) > 60 Est GFR (Non-Af Amer) > 60 Random Glucose 170 H Calcium 9.3
[2017-07-03] MEDS: Ammonium Lactate 12% Cream (140 g) TOP SCH ×2 (08:10→16:54)
[2017-07-03] MEDS: Enoxaparin 40 mg Syringe SC SCH (08:10)
[2017-07-03] MEDS: Pantoprazole 40 mg EC Tab PO SCH (08:11)
--- NOTE | 2017-07-03 09:55 | CP.PCM.PN ---
Subjective - Date & Time of Evaluation Date of Evaluation: 07/03/17 Time of Evaluation: 09:52 - Subjective Subjective: Patient seen in PT. Has notable decrease in left UE/LE strength. Cannot move fingers or wrist more than just trace Minimal LE strength as well Neuro consult will be called and likely brain imaging to be ordered Not dizzy or lightheaded. Mouth has some parasthesias. Objective - Vital Signs/Intake and Output Vital Signs (last 24 hours): Temp Pulse Resp BP Pulse Ox 97.1 F L 82 20 130/70 100 07/03/17 08:00 07/03/17 08:11 07/03/17 08:00 07/03/17 08:11 07/03/17 08:00 - Medications Medications: Current Medications Amlodipine Besylate (Norvasc) 10 mg PO DAILY [facility] Last Admin: 07/03/17 08:11 Dose: 10 mg Aspirin (Ecotrin) 81 mg PO DAILY [facility] Last Admin: 07/03/17 08:10 Dose: 81 mg Atorvastatin Calcium (Lipitor) 80 mg PO HS [facility] Last Admin: 07/02/17 21:10 Dose: 80 mg Clopidogrel Bisulfate (Plavix) 75 mg PO DAILY [facility] Last Admin: 07/03/17 08:10 Dose: 75 mg Docusate Sodium (Colace) 100 mg PO BID [facility] Last Admin: 07/03/17 08:10 Dose: 100 mg Enoxaparin Sodium (Lovenox) 40 mg SC DAILY [facility] PRN Reason: Protocol Last Admin: 07/03/17 08:10 Dose: 40 mg Guaifenesin (Robitussin) 100 mg PO Q6 PRN PRN Reason: Cough Last Admin: 07/01/17 21:02 Dose: 100 mg Ibuprofen (Motrin Tab) 400 mg PO Q6 PRN PRN Reason: pain 4-10 Last Admin: 07/01/17 20:55 Dose: 400 mg Lactic Acid (Lac-Hydrin 12% Cream (140 G)) 1 ea TOP BID [facility] Last Admin: 07/03/17 08:10 Dose: 1 applic Lisinopril (Zestril) 10 mg PO DAILY [facility] Last Admin: 07/02/17 08:23 Dose: 10 mg Pantoprazole Sodium (Protonix Ec Tab) 40 mg PO DAILY [facility] Last Admin: 07/03/17 08:11 Dose: 40 mg Prednisolone Acetate (Pred Forte 1% Opht Susp) 1 drop OS Q6 [facility] Last Admin: 07/03/17 06:39 Dose: 1 drop - Labs Labs: 07/03/17 05:20 07/03/17 05:20
--- NOTE | 2017-07-03 10:46 | CP.PCM.PN ---
Subjective - Date & Time of Evaluation Date of Evaluation: 07/03/17 Time of Evaluation: 10:00 - Subjective Subjective: Patient was seen during PT this morning. I was alerted that the patient has increased weakness to his left upper extremity and left lower extremity. Also with left mouth droop. According to the chart and staff the patient was able to left his left arm against gravity with good pot firer- however now the patient is unable to move his left arm and now only has minimal left sided pot firer strength. In addition he is unable to ambulate with his left leg this morning. The patient states that he first noticed this increased weakness last night. Neuro is being called- Dr. Chinchilla is notified. Denies any chest pain, shortness of breath , fevers, chills, nausea, vomiting, diarrhea, headache. All of the patient's questions were answered at the bedside. Objective - Vital Signs/Intake and Output Vital Signs (last 24 hours): Temp Pulse Resp BP Pulse Ox 97.1 F L 82 20 130/70 100 07/03/17 08:00 07/03/17 08:11 07/03/17 08:00 07/03/17 08:11 07/03/17 08:00 - Medications Medications: Current Medications Aspirin (Ecotrin) 81 mg PO DAILY [facility] Last Admin: 07/03/17 08:10 Dose: 81 mg Atorvastatin Calcium (Lipitor) 80 mg PO HS [facility] Last Admin: 07/02/17 21:10 Dose: 80 mg Clopidogrel Bisulfate (Plavix) 75 mg PO DAILY [facility] Last Admin: 07/03/17 08:10 Dose: 75 mg Docusate Sodium (Colace) 100 mg PO BID [facility] Last Admin: 07/03/17 08:10 Dose: 100 mg Enoxaparin Sodium (Lovenox) 40 mg SC DAILY [facility] PRN Reason: Protocol Last Admin: 07/03/17 08:10 Dose: 40 mg Guaifenesin (Robitussin) 100 mg PO Q6 PRN PRN Reason: Cough Last Admin: 07/01/17 21:02 Dose: 100 mg Ibuprofen (Motrin Tab) 400 mg PO Q6 PRN PRN Reason: pain 4-10 Last Admin: 07/01/17 20:55 Dose: 400 mg Lactic Acid (Lac-Hydrin 12% Cream (140 G)) 1 ea TOP BID [facility] Last Admin: 07/03/17 08:10 Dose: 1 applic Pantoprazole Sodium (Protonix Ec Tab) 40 mg PO DAILY [facility] Last Admin: 07/03/17 08:11 Dose: 40 mg Prednisolone Acetate (Pred Forte 1% Opht Susp) 1 drop OS Q6 [facility] Last Admin: 07/03/17 06:39 Dose: 1 drop - Labs Labs: 07/03/17 05:20 07/03/17 05:20 - Additional Findings Additional findings: Physical exam: Constitutional- cooperative, awake, alert Head- NCAT, left facial droop. Eye- PERRL, EOMI.Left eye conjunctival injection. ENT- normal exam, MMM. Neck- normal inspection, supple, no JVD Respiratory- CTAB, no wheezes rales rhonchi Cardiovascular- RRR, +S1, +S2 no MRG GI/Abdominal- normal bowel sounds, soft, no mass, no hsm Skin- warm, dry Extremities Exam- normal capillary refill, normal inspection Neurological Exam- 1/5 muscle strength in left arm and leg. Trace pot firer strength to left hand. Right side 5/5 muscle strength in upper and lower extremity. alert , awake, oriented Psych- normal mood, normal affect Assessment and Plan - Assessment and Plan (Free Text) Plan: 62 yo male with history of HTN, HLD and ETOH abuse admitted at [facility] on 2017 because of sudden onset of left sided weakness causing him to fall down. Patient was also noted to have difficulty in speech associated with left facial weakness. CT scan showed acute lacunar infarct on the right putamen. He was then transferred to [facility] and admitted at [facility] to continue his PT. On he was noticed to have decreased strength and concern for recurrence of his CVA 1. Acute CVA, now recurrence? Consult neurology, Dr. Chinchilla stat Patient first noticed increased weakness last night- now out of window for tPA administration Likely for brain imaging today as per neuro- will f/u continue PT/OT continue ASA, Plavix, statin and BP control 2. HTN BP stable Allowing permissive htn as there is concern for recurrent cva holding Amlodipine and Lisinopril 3. HLD Atorvastatin 80mg PO HS 4. DVT prophylaxis Lovenox 40mg SC daily
--- NOTE | 2017-07-03 11:31 | CP.PCM.CON ---
History of Present Illness - History of Present Illness History of Present Illness: Mr. Resendez is a 62 yo male with history of HTN, HLD and ETOH abuse admitted at [facility] on [place] because of sudden onset of left sided weakness causing him to fall down. Patient was also noted to have difficulty in speech associated with left facial weakness. Previous CT scan showed acute lacunar infarct on the right putamen. He was transferred to [facility] to continue his PT from [facility]. Today, he was complaining of progressing left sided weakness. He was not able to move his fingers and toes which he was able to perform previously.This caused for a neurology consult. He remains alert, oriented x3 with left pupils has cataract. He is able to follow simple commands and denies any headache, dizziness, lightheadedness. He further states of having poor PO intake especially fluid. Review of Systems - Review of Systems All systems: reviewed and no additional remarkable complaints except Past Patient History - Tetanus Immunizations Tetanus Immunization: Unknown - Past Medical History & Family History Past Medical History?: Yes - Past Social History Smoking Status: Former Smoker Alcohol: > 2 Drinks/Day Drugs: Cocaine Home Situation {Lives}: Alone - CARDIAC Hx Hypercholesterolemia: Yes Hx Hypertension: Yes - PULMONARY Hx Respiratory Disorders: No - NEUROLOGICAL Hx Neurological Disorder: No - HEENT Hx Cataracts: Yes (had cataract surgery on left eye 3 months ago) 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) - RENAL Hx Chronic Kidney Disease: No - ENDOCRINE/METABOLIC Hx Endocrine Disorders: No - HEMATOLOGICAL/ONCOLOGICAL Hx Blood Disorders: No - INTEGUMENTARY Hx Dermatological Problems: No - MUSCULOSKELETAL/RHEUMATOLOGICAL Hx Musculoskeletal Disorders: No - GASTROINTESTINAL Hx Gastrointestinal Disorders: No - GENITOURINARY/GYNECOLOGICAL Hx Genitourinary Disorders: No - PSYCHIATRIC Hx Psychophysiologic Disorder: No - SURGICAL HISTORY Hx Cataract Extraction: Yes (3 months ago, left eye) - ANESTHESIA Hx Anesthesia: Yes Hx Anesthesia Reactions: No Meds Allergies/Adverse Reactions: Allergies Allergy/AdvReac Type Severity Reaction Status Date / Time No Known Allergies Allergy Verified 06/26/17 19:34 - Medications Medications: Current Medications Aspirin (Ecotrin) 81 mg PO DAILY [facility] Last Admin: 07/03/17 08:10 Dose: 81 mg Atorvastatin Calcium (Lipitor) 80 mg PO HS [facility] Last Admin: 07/02/17 21:10 Dose: 80 mg Clopidogrel Bisulfate (Plavix) 75 mg PO DAILY [facility] Last Admin: 07/03/17 08:10 Dose: 75 mg Docusate Sodium (Colace) 100 mg PO BID [facility] Last Admin: 07/03/17 08:10 Dose: 100 mg Enoxaparin Sodium (Lovenox) 40 mg SC DAILY [facility] PRN Reason: Protocol Last Admin: 07/03/17 08:10 Dose: 40 mg Guaifenesin (Robitussin) 100 mg PO Q6 PRN PRN Reason: Cough Last Admin: 07/01/17 21:02 Dose: 100 mg Ibuprofen (Motrin Tab) 400 mg PO Q6 PRN PRN Reason: pain 4-10 Last Admin: 07/01/17 20:55 Dose: 400 mg Lactic Acid (Lac-Hydrin 12% Cream (140 G)) 1 ea TOP BID [facility] Last Admin: 07/03/17 08:10 Dose: 1 applic Pantoprazole Sodium (Protonix Ec Tab) 40 mg PO DAILY [facility] Last Admin: 07/03/17 08:11 Dose: 40 mg Prednisolone Acetate (Pred Forte 1% Opht Susp) 1 drop OS Q6 [facility] Last Admin: 07/03/17 06:39 Dose: 1 drop Physical Exam - Constitutional Appears: No Acute Distress - Head Exam Head Exam: NORMAL INSPECTION - Eye Exam Eye Exam: EOMI (left pupils with cataract) - ENT Exam ENT Exam: Mucous Membranes Moist, Normal Exam - Neck Exam Neck exam: Positive for: Normal Inspection - Respiratory Exam Respiratory Exam: Clear to Auscultation Bilateral, NORMAL BREATHING PATTERN - Cardiovascular Exam Cardiovascular Exam: +S1, +S2 - GI/Abdominal Exam GI & Abdominal Exam: Normal Bowel Sounds, Soft. absent: Tenderness - Extremities Exam Extremities exam: Positive for: normal inspection - Expanded Upper Extremities Exam Left Shoulder exam: normal inspection - Neurological Exam Neurological exam: Alert, Oriented x3 - Expanded Neurological Exam Expanded Patient oriented to: person, place, time Speech: Garbled Speech, Slurred Speech Cranial nerves: EOM's Intact: Normal, Facial Palsey w/o Forehead Movement: Abnormal Left, Facial Sensation: Normal, Gag Reflex: Normal, Nystagmus: Normal, Tongue Deviation: Normal Cerebellar Function: Finger to Nose: Normal, Heel to Crespo: Abnormal Left Upper motor neuron: Pronator Drift: Abnormal Left Sensory exam: Lower Extremity 2 Point Discrimination: Normal, Lower Extremity Light Touch: Normal, Lower Extremity Pin Prick: Normal, Lower Extremity Temperature: Normal, Upper Extremity 2 Point Discrimination: Normal, Upper Extremity Light Touch: Normal, Upper Extremity Pin Prick: Normal, Upper Extremity Temperature: Normal Neuro motor strength exam: Left Upper Extremity: 0, Right Upper Extremity: 5, Left Lower Extremity: 2/1, Right Lower Extremity: 5 Results - Vital Signs Recent Vital Signs: Last Vital Signs Temp 97.1 F L 07/03/17 08:00 Pulse 82 07/03/17 08:11 Resp 20 07/03/17 08:00 BP 130/70 07/03/17 08:11 Pulse Ox 100 07/03/17 08:00 - Labs Result Diagrams: 07/03/17 05:20 07/03/17 05:20 Labs: Laboratory Results - last 24 hr 07/03/17 07/03/17 05:20 05:20 WBC 9.5 D RBC 4.41 Hgb 14.1 Hct 40.8 MCV 92.6 MCH 31.9 H MCHC 34.4 RDW 13.4 Plt Count 234 Sodium 140 Potassium 3.9 Chloride 95 L Carbon Dioxide 28 Anion Gap 21 H BUN 18 Creatinine 0.8 Est GFR ( Amer) > 60 Est GFR (Non-Af Amer) > 60 Random Glucose 170 H Calcium 9.3 Assessment & Plan (1) CVA (cerebral vascular accident) Assessment and Plan: Mr. Resendez is a 62 yo male with history of HTN, HLD and ETOH abuse admitted at [facility] on 06[place]12/2017 because of sudden onset of left sided weakness causing him to fall down. Patient was also noted to have difficulty in speech associated with left facial weakness. Today, he was complaining of progressing left sided weakness. He was not able to move his fingers and toes which he was able to perform previously. This maybe a new onset CVA Case discussed with Dr. Chinchilla, recommend the following 1. CT scan of the head without contrast stat 2. Carotid doppler 3. echocardiogram 4. labs such as vit. b 12, vit. d., tsh 5. PT/OT/ST eval and treat 6. Encourage to increase PO intake to maintain brain perfusion. 7. Recommend blood pressure and glycemic control. Thank you. Status: Acute
--- NOTE | 2017-07-03 12:56 | CT ---
PROCEDURE: CT HEAD WITHOUT CONTRAST. HISTORY: weakness COMPARISON: None available. TECHNIQUE: Axial computed tomography images were obtained through the head/brain without intravenous contrast. Radiation dose: Total exam DLP = 920.58 mGy-cm. This CT exam was performed using one or more of the following dose reduction techniques: Automated exposure control, adjustment of the mA and/or kV according to patient size, and/or use of iterative reconstruction technique. FINDINGS: HEMORRHAGE: No intracranial hemorrhage. BRAIN: A small chronic infarction is appreciated at the left basal ganglia anteriorly with subtle ex vacuo expansion of the left frontal horn. A chronic lacune is seen at the anterior right basal ganglia. Although motion artifacts degrade some of the exam, no definitive cortical edema is appreciated throughout the exam and corticomedullary differentiation remains adequate above and below the tentorium. The brainstem is unremarkable. There is no suspicious extra-axial fluid collection identified and midline brain anatomy is unremarkable. Bilateral cavernous internal carotid artery segmental atherosclerosis is appreciated. Minimal diffuse cerebral atrophy is identified manifest by expansion of the ventricular sulcal and cisternal spaces. VENTRICLES: Unremarkable. No hydrocephalus. CALVARIUM: Unremarkable. PARANASAL SINUSES: Unremarkable as visualized. No significant inflammatory changes. MASTOID AIR CELLS: Unremarkable as visualized. No inflammatory changes. OTHER FINDINGS: None. IMPRESSION: No definite acute intracranial hemorrhage, mass effect or cortical edema. Follow-up CT or MRI are available as clinically warranted. Chronic lacune anterior right basal ganglia and chronic small infarct left basal ganglia anteriorly. Minimal diffuse cerebral atrophy.
--- NOTE | 2017-07-03 17:00 | US ---
PROCEDURE: Duplex ultrasound of the carotid and vertebral arteries. HISTORY: left sided weakness COMPARISON: None available. TECHNIQUE: Grayscale and duplex Doppler evaluation of the cervical carotid and vertebral arteries were performed. The common carotid, carotid bifurcations and cervical ICA and proximal ECA were evaluated. The vertebral arteries were evaluated for gross patency and direction. FINDINGS: RIGHT CAROTID ARTERIES: Common Carotid Artery: Intimal thickening is present Maximal flow velocity of 98.6 cm/s. Carotid Bifurcation: Partially calcified plaque Internal Carotid Artery:Heterogeneous plaque formation. Maximal flow velocity of 73.8 cm/s. External Carotid Artery (proximal branches): Normal. Maximal flow velocity of 1007.7 cm/s. ICA/CCA Ratio: 0.9 LEFT CAROTID ARTERIES: Common Carotid Artery: Intimal thickening is present Maximal flow velocity of 104.3 cm/s. Carotid Bifurcation: Partially calcified plaque within the carotid bulb/ bifurcation Internal Carotid Artery:Heterogeneous plaque formation. Maximal flow velocity of 76.9 cm/s. External Carotid Artery (proximal branches): Normal. Maximal flow velocity of 109.2 cm/s. ICA/CCA Ratio: 0.9 VERTEBRAL ARTERIES: Right Vertebral Artery: Patent. Antegrade flow. Left Vertebral Artery: Patent. Antegrade flow. OTHER FINDINGS: None. IMPRESSION: Right ICA degree of stenosis: Less than 50% Left ICA degree of stenosis: Less than 50% Reference Internal Carotid Artery (ICA) Peak Systolic Velocity (PSV) for above: 1. Less than 50% stenosis less than 125 cm/s peak systolic velocity 2. 50-69% stenosis 125-230cm/s peak systolic velocity 3. Greater than 70% but less than near occlusion greater than 230 cm/s peak systolic velocity
[2017-07-03] MEDS: guaiFENesin 100 mg/5 ml Syrup UD PO PRN (21:09)
[2017-07-04] MEDS: PrednisoLONE 1% OPTH SUSP OS SCH ×3 (05:34→18:26)
[2017-07-04] MEDS: Pantoprazole 40 mg EC Tab PO SCH (08:53)
[2017-07-04] MEDS: Enoxaparin 40 mg Syringe SC SCH (08:53)
[2017-07-04] MEDS: Ammonium Lactate 12% Cream (140 g) TOP SCH ×2 (09:00→18:26)
--- NOTE | 2017-07-04 18:11 | CP.PCM.PN ---
Subjective - Date & Time of Evaluation Date of Evaluation: 07/04/17 Time of Evaluation: 11:00 - Subjective Subjective: no acute complaints at present Objective - Vital Signs/Intake and Output Vital Signs (last 24 hours): Temp Pulse Resp BP Pulse Ox 98.3 F 90 20 128/75 97 07/04/17 08:00 07/04/17 08:54 07/04/17 08:00 07/04/17 08:54 07/04/17 08:00 - Medications Medications: Current Medications Amlodipine Besylate (Norvasc) 10 mg PO DAILY [facility] Last Admin: 07/04/17 08:53 Dose: 10 mg Aspirin (Ecotrin) 81 mg PO DAILY [facility] Last Admin: 07/04/17 08:53 Dose: 81 mg Atorvastatin Calcium (Lipitor) 80 mg PO HS [facility] Last Admin: 07/03/17 21:08 Dose: 80 mg Clopidogrel Bisulfate (Plavix) 75 mg PO DAILY [facility] Last Admin: 07/04/17 08:53 Dose: 75 mg Docusate Sodium (Colace) 100 mg PO BID [facility] Last Admin: 07/04/17 08:53 Dose: 100 mg Enoxaparin Sodium (Lovenox) 40 mg SC DAILY [facility] PRN Reason: Protocol Last Admin: 07/04/17 08:53 Dose: 40 mg Guaifenesin (Robitussin) 100 mg PO Q6 PRN PRN Reason: Cough Last Admin: 07/03/17 21:09 Dose: 100 mg Ibuprofen (Motrin Tab) 400 mg PO Q6 PRN PRN Reason: pain 4-10 Last Admin: 07/03/17 17:01 Dose: 400 mg Lactic Acid (Lac-Hydrin 12% Cream (140 G)) 1 ea TOP BID [facility] Last Admin: 07/04/17 09:00 Dose: 1 applic Lisinopril (Zestril) 10 mg PO DAILY [facility] Last Admin: 07/04/17 08:54 Dose: 10 mg Pantoprazole Sodium (Protonix Ec Tab) 40 mg PO DAILY [facility] Last Admin: 07/04/17 08:53 Dose: 40 mg Prednisolone Acetate (Pred Forte 1% Opht Susp) 1 drop OS Q6 [facility] Last Admin: 07/04/17 12:51 Dose: 1 drop - Labs Labs: 07/03/17 05:20 07/03/17 05:20 - Head Exam Head Exam: ATRAUMATIC, NORMAL INSPECTION, NORMOCEPHALIC - Eye Exam Eye Exam: EOMI, Normal appearance Pupil Exam: NORMAL ACCOMODATION, PERRL - ENT Exam ENT Exam: Mucous Membranes Moist, Normal Exam - Neck Exam Neck Exam: Full ROM, Normal Inspection - Respiratory Exam Respiratory Exam: Clear to Ausculation Bilateral, NORMAL BREATHING PATTERN - Cardiovascular Exam Cardiovascular Exam: REGULAR RHYTHM - GI/Abdominal Exam GI & Abdominal Exam: Normal Bowel Sounds - Rectal Exam Rectal Exam: NORMAL INSPECTION - Exam External exam: NORMAL EXTERNAL EXAM - Extremities Exam Extremities Exam: Full ROM, Normal Capillary Refill, Normal Inspection - Back Exam Back Exam: NORMAL INSPECTION - Neurological Exam Neurological Exam: Alert, Awake Additional comments: weakness in the extremities - Psychiatric Exam Psychiatric exam: Normal Affect, Normal Mood - Skin Skin Exam: Normal Color Assessment and Plan (1) CVA (cerebral vascular accident) Assessment & Plan: plan for physical, occupational therapy ,rec therapy covering for DR Hayes for today Status: Acute
[2017-07-04] MEDS: guaiFENesin 100 mg/5 ml Syrup UD PO PRN (21:14)
[2017-07-05] MEDS: PrednisoLONE 1% OPTH SUSP OS SCH ×5 (00:12→23:05)
[2017-07-05] MEDS: Ammonium Lactate 12% Cream (140 g) TOP SCH ×2 (08:39→17:35)
[2017-07-05] MEDS: Enoxaparin 40 mg Syringe SC SCH (08:40)
[2017-07-05] MEDS: Pantoprazole 40 mg EC Tab PO SCH (08:40)
--- NOTE | 2017-07-05 10:54 | CARD ---
APPROVED REPORT EXAM: Two-dimensional and M-mode echocardiogram with Doppler and color Doppler. Other Information Quality : GoodRhythm : NSR INDICATION CVA/TIA 2D DIMENSIONS IVSd1.11 (0.7-1.1cm)LVDd5.04 (3.9-5.9cm) LVOT Diameter1.98 (1.8-2.4cm)PWd1.03 (0.7-1.1cm) IVSs1.49 (0.8-1.2cm)LVDs3.12 (2.5-4.0cm) FS (%) 38.2 %PWs1.35 (0.8-1.2cm) M-Mode DIMENSIONS Left Atrium (MM)3.41 (2.5-4.0cm)IVSd1.35 (0.7-1.1cm) Aortic Root3.15 (2.2-3.7cm)LVDd5.44 (4.0-5.6cm) Aortic Cusp Exc.2.06 (1.5-2.0cm)PWd1.00 (0.7-1.1cm) IVSs1.74 cmFS (%) 44 % LVDs3.03 (2.0-3.8cm)PWs1.71 cm Mitral Valve MV E Ksizwobs39.8cm/sMV DECEL [id number] A Eklwbchg80.6cm/s MV VHY40zeS/A ratio1.4MVA (PHT)4.47cm2 TDI Lateral E' Peak V14.83cm/sMedial E' Peak V12.14cm/sE/Lateral E'4.7 E/Medial E'5.7 Pulmonary Valve PV Peak Laartgfb54.4cm/s LEFT VENTRICLE The left ventricle is normal size. There is normal left ventricular wall thickness. The left ventricular function is normal. The left ventricular ejection fraction is within the normal range. The Ejection Fraction is 65-70%. There is normal LV segmental wall motion. The left ventricular diastolic function is normal. RIGHT VENTRICLE The right ventricle is normal size. The right ventricular systolic function is normal. ATRIA The left atrium size is normal. The right atrium size is normal. AORTIC VALVE The aortic valve is normal in structure. No aortic regurgitation is present. There is no aortic valvular stenosis. MITRAL VALVE The mitral valve is normal in structure. There is no mitral valve stenosis. There is no mitral valve regurgitation noted. TRICUSPID VALVE The tricuspid valve is normal in structure. There is no tricuspid valve regurgitation noted. There is no tricuspid valve stenosis. PULMONIC VALVE The pulmonary valve is normal in structure. There is no pulmonic valvular regurgitation. GREAT VESSELS The aortic root is normal in size. The IVC is normal in size and collapses >50% with inspiration. PERICARDIAL EFFUSION The pericardium appears normal. <Conclusion> The left ventricle is normal size. The left ventricular function is normal. The left ventricular ejection fraction is within the normal range. The Ejection Fraction is 65-70%.
[2017-07-05] MEDS: guaiFENesin 100 mg/5 ml Syrup UD PO PRN (23:06)
[2017-07-06] MEDS: PrednisoLONE 1% OPTH SUSP OS SCH ×4 (05:35→23:05)
[2017-07-06 06:52] LABS: HEMOGLOBIN 13.3 g/dL (12.0-18.0); MEAN CELL VOLUME 90.4 fl (80.0-94.0); MEAN CORPUSCULAR HEMOGLOBIN 31.7 pg (27.0-31.0); MEAN CORPUSCULAR HGB CONC 35.1 g/dL (33.0-37.0); RBC 4.2 Mil/uL (4.40-5.90); RED CELL DISTRIBUTION WIDTH 13.3 % (11.5-14.5); WHITE BLOOD COUNT 6.8 K/uL (4.8-10.8)
[2017-07-06 08:15] LABS: BLOOD UREA NITROGEN 17 mg/dl (9-20); CALCIUM 9.3 mg/dL (8.4-10.2); GFR AFRICAN-AMERICAN > 60; GFR NON-AFRICAN AMERICAN > 60
[2017-07-06] MEDS: Pantoprazole 40 mg EC Tab PO SCH (08:56)
[2017-07-06] MEDS: Ammonium Lactate 12% Cream (140 g) TOP SCH ×2 (08:57→16:41)
[2017-07-06] MEDS: Enoxaparin 40 mg Syringe SC SCH (08:57)
--- NOTE | 2017-07-06 11:46 | CP.PCM.PN ---
Subjective - Date & Time of Evaluation Date of Evaluation: 07/06/17 Time of Evaluation: 11:44 - Subjective Subjective: Mr. Hendricks was seen and examined at the therapy room. He is alert, oriented in all spheres. He is able to participates in his therapy session. He denies any headache, dizziness, lightheadedness, nausea, or vomiting.He remains with left facial droop,left hemiplegia. There was no untoward events overnight. Objective - Vital Signs/Intake and Output Vital Signs (last 24 hours): Temp Pulse Resp BP Pulse Ox 97.1 F L 70 20 104/63 98 07/06/17 07:39 07/06/17 08:56 07/06/17 07:39 07/06/17 08:56 07/06/17 07:39 - Medications Medications: Current Medications Amlodipine Besylate (Norvasc) 10 mg PO DAILY [facility] Last Admin: 07/06/17 08:56 Dose: 10 mg Aspirin (Ecotrin) 81 mg PO DAILY [facility] Last Admin: 07/06/17 08:56 Dose: 81 mg Atorvastatin Calcium (Lipitor) 80 mg PO HS [facility] Last Admin: 07/05/17 21:32 Dose: 80 mg Clopidogrel Bisulfate (Plavix) 75 mg PO DAILY [facility] Last Admin: 07/06/17 08:56 Dose: 75 mg Docusate Sodium (Colace) 100 mg PO BID [facility] Last Admin: 07/06/17 08:56 Dose: 100 mg Enoxaparin Sodium (Lovenox) 40 mg SC DAILY [facility] PRN Reason: Protocol Last Admin: 07/06/17 08:57 Dose: 40 mg Guaifenesin (Robitussin) 100 mg PO Q6 PRN PRN Reason: Cough Last Admin: 07/05/17 23:06 Dose: 100 mg Ibuprofen (Motrin Tab) 400 mg PO Q6 PRN PRN Reason: pain 4-10 Last Admin: 07/05/17 19:30 Dose: 400 mg Lactic Acid (Lac-Hydrin 12% Cream (140 G)) 1 ea TOP BID [facility] Last Admin: 07/06/17 08:57 Dose: 1 applic Lisinopril (Zestril) 10 mg PO DAILY [facility] Last Admin: 07/06/17 08:56 Dose: 10 mg Pantoprazole Sodium (Protonix Ec Tab) 40 mg PO DAILY [facility] Last Admin: 07/06/17 08:56 Dose: 40 mg Prednisolone Acetate (Pred Forte 1% Opht Susp) 1 drop OS Q6 [facility] Last Admin: 07/06/17 05:35 Dose: 1 drop - Labs Labs: 07/06/17 05:35 07/06/17 05:35 - Constitutional Appears: No Acute Distress - Head Exam Head Exam: NORMAL INSPECTION - Neurological Exam Neurological Exam: Alert, Awake, Oriented x3 Neuro motor strength exam: Left Upper Extremity: 2/1, Right Upper Extremity: 5, Left Lower Extremity: 2/1, Right Lower Extremity: 5 Additional comments: He remains alert, oriented, follows all commands. Assessment and Plan (1) CVA (cerebral vascular accident) Assessment & Plan: Case discussed with Dr. Chinchilla, continue all current medical, physical, occupational, and speech therapies. Recommend blood pressure control,keep head of bed elevated at least 30 degrees to maintain brain perfusion. Status: Acute
--- NOTE | 2017-07-06 14:42 | CP.PCM.PN ---
Subjective - Date & Time of Evaluation Date of Evaluation: 07/06/17 Time of Evaluation: 14:42 - Subjective Subjective: pt doing well no complaints at this time denies cp sob n/v/c/d hd stable nad Objective - Vital Signs/Intake and Output Vital Signs (last 24 hours): Temp Pulse Resp BP Pulse Ox 97.1 F L 70 20 104/63 98 07/06/17 07:39 07/06/17 08:56 07/06/17 07:39 07/06/17 08:56 07/06/17 07:39 - Medications Medications: Current Medications Amlodipine Besylate (Norvasc) 10 mg PO DAILY [facility] Last Admin: 07/06/17 08:56 Dose: 10 mg Aspirin (Ecotrin) 81 mg PO DAILY [facility] Last Admin: 07/06/17 08:56 Dose: 81 mg Atorvastatin Calcium (Lipitor) 80 mg PO HS [facility] Last Admin: 07/05/17 21:32 Dose: 80 mg Clopidogrel Bisulfate (Plavix) 75 mg PO DAILY [facility] Last Admin: 07/06/17 08:56 Dose: 75 mg Docusate Sodium (Colace) 100 mg PO BID [facility] Last Admin: 07/06/17 08:56 Dose: 100 mg Enoxaparin Sodium (Lovenox) 40 mg SC DAILY [facility] PRN Reason: Protocol Last Admin: 07/06/17 08:57 Dose: 40 mg Guaifenesin (Robitussin) 100 mg PO Q6 PRN PRN Reason: Cough Last Admin: 07/05/17 23:06 Dose: 100 mg Ibuprofen (Motrin Tab) 400 mg PO Q6 PRN PRN Reason: pain 4-10 Last Admin: 07/05/17 19:30 Dose: 400 mg Lactic Acid (Lac-Hydrin 12% Cream (140 G)) 1 ea TOP BID [facility] Last Admin: 07/06/17 08:57 Dose: 1 applic Lisinopril (Zestril) 10 mg PO DAILY [facility] Last Admin: 07/06/17 08:56 Dose: 10 mg Pantoprazole Sodium (Protonix Ec Tab) 40 mg PO DAILY [facility] Last Admin: 07/06/17 08:56 Dose: 40 mg Prednisolone Acetate (Pred Forte 1% Opht Susp) 1 drop OS Q6 [facility] Last Admin: 07/06/17 13:05 Dose: 1 drop - Labs Labs: 07/06/17 05:35 07/06/17 05:35 - Head Exam Additional comments: Vitals Reviewed GEN: WDWN, alert, cooperative HEENT: NCAT, PERRL, EOMI HEART: RRR, +S1S2, NO MRG LUNG: CTAB, NO WRR ABD: soft, NT, ND, No HSM, No masses EXT: normal pedal pulses, normal capillary refill NEURO: awake, alert SKIN: warm, dry PSYCH: normal mood, normal affect Assessment and Plan - Assessment and Plan (Free Text) Plan: 62 yo male with history of HTN, HLD and ETOH abuse admitted at [facility] on 2017 because of sudden onset of left sided weakness causing him to fall down. Patient was also noted to have difficulty in speech associated with left facial weakness. CT scan showed acute lacunar infarct on the right putamen. He was then transferred to [facility] and admitted at Acute [facility] to continue his PT. On he was noticed to have decreased strength and concern for recurrence of his CVA 1. Acute CVA, now recurrence? Consult neurology, Dr. Chinchilla stat Patient first noticed increased weakness last night- now out of window for tPA administration Likely for brain imaging today as per neuro- will f/u continue PT/OT continue ASA, Plavix, statin and BP control 2. HTN BP stable Allowing permissive htn as there is concern for recurrent cva holding Amlodipine and Lisinopril 3. HLD Atorvastatin 80mg PO HS 4. DVT prophylaxis Lovenox 40mg SC daily
[2017-07-06] MEDS: guaiFENesin 100 mg/5 ml Syrup UD PO PRN (21:32)
[2017-07-07] MEDS: PrednisoLONE 1% OPTH SUSP OS SCH ×4 (05:35→23:03)
[2017-07-07] MEDS: Enoxaparin 40 mg Syringe SC SCH (09:19)
[2017-07-07] MEDS: Ammonium Lactate 12% Cream (140 g) TOP SCH ×2 (09:19→17:01)
[2017-07-07] MEDS: Pantoprazole 40 mg EC Tab PO SCH (09:20)
--- NOTE | 2017-07-07 13:21 | PSY.TMCNF ---
Nursing - Vital Signs Vital Signs (Last 8 hours): Vital Signs 07/07/17 07/07/17 08:15 09:20 Temperature 97.5 F L Pulse Rate 81 81 Respiratory 21 Rate Blood Pressure 114/64 114/64 O2 Sat by Pulse 97 Oximetry Pain: 0 - Precautions: Precautions: Fall Prevention, Aspiration, Pressure Ulcer - Medications/Other Issues Comment: Pt at low nutritional risk. Follow-up due on 07/12/2017 - Consults Comment: Dr Hayes,DR Rangel - Toileting Toileting: Minimal Assistance - Bladder Management Bladder Pattern: Normal Voiding Method: Toilet, Urinal - Bowel Management Bowel Pattern: Normal Bowel Management: Minimal Assistance - Transfers Transfers: Contact Guard - ADL's ADL's: Minimal Assistance - Pain Management Comments: on motrin for left leg pain and shoulder - Patient/Family Teaching Comments: post cva safety and fall precaution medication teachings - Goals/Time Frame Comments: as per multidiciplinary plan of care - Provider Provider: Whitney Nixon Physical Therapy - Bed Mobility Bed Mobility: Minimal Assistance - Transfers Wheelchair to Mat: Minimal Assistance Sit to Stand: Minimal Assistance - Ambulation Level of Assistance: Moderate Assistance Distance (ft.): 75 Assistive Devices: Narrow base quad cane Orthoses: L dorsiflexor assist MELY wrap - Stair Negotiation Stairs: Level of Assistance: Moderate Assistance Number of Stairs: 3 - Standing Balance Static Stand: Contact Guard Assist Dynamic Stand: Minimal Assistance, Moderate Assistance - Pain Pain (assessed during therapy session): 0 - Insight/Carryover Insight/Carryover: Fair - Patient/Family Education Comment: Pt ed for increased safety awareness and proper techniques during functional mobility training. - Assessment/Plan Assessment: Pt experiencing decline in level of function with reported increased LLE weakness. RNs and MD aware; Head CT (-) acute changes. Pt now requires min A for transfers, mod A for ambulation with NBQC with LLE dorsiflexor assist MELY wrap required to assist with toe clearance. Pt will continue to benefit from skilled PT intervention to address deficits, reduce fall risk, and maximize functional independence. Recommend d.c to [facility]. - Goals Timeframe: 3 weeks Goals: Sit < > supine mod I. Sit < > stand mod I. Pt will ambulate 200 ft mod I with NBQC. Pt will ascend/descend flight of stairs mod I with NBQC - Provider Therapist: Grazyna Abraham PT DPT License Number: [id number] Occupational Therapy - Arousal/Attention/Orientation Patient Orientation: Person, Place, Time, Appropriate to Age, Appropriate to Situation - ADL/IADL Self Feeding: Supervision, Set-up Help Grooming: Verbal Cues, Set-up Help, Minimal Assistance Bathing-Upper Extremity: Minimal Assistance Bathing-Lower Extremity: Minimal Assistance Dressing-Upper Extremity: Supervision, Verbal Cues, Set-up Help Dressing-Lower Extremity: Contact Guard, Minimal Assistance - Sitting Balance Static Sitting: Independent with upper extremity support Dynamic Sitting: Requires supervision, Contact Guard Assist - Transfers Wheelchair to Bed Transfers: Contact Guard Toilet Transfers: Contact Guard Tub Transfers: Contact Guard, Minimal Assistance - Wheelchair Management Level of Assistance: Minimal Assistance Distance (ft.): 150 - Upper Extremity Status Right Upper Extremity Comment: WFL Left Upper Extremity Comment: PROM WFL. AROM impaired. strength 2-/5 digits, wrist, elbow - Pain Pain (assessed during therapy session): 0 - Insight/Carryover Insight/Carryover: Fair - Patient/Family Education Comment: Pt ed for increased safety awareness and proper techniques during functional mobility training. - Assessment/Plan Assessment: Pt experiencing decline in level of function with reported increased LLE weakness. RNs and MD aware; Head CT (-) acute changes. Pt now requires min A for transfers, mod A for ambulation with NBQC with LLE dorsiflexor assist MELY wrap required to assist with toe clearance. Pt will continue to benefit from skilled PT intervention to address deficits, reduce fall risk, and maximize functional independence. Recommend d.c to [facility]. - Goals Timeframe: 3 weeks Goals: Sit < > supine mod I. Sit < > stand mod I. Pt will ambulate 200 ft mod I with NBQC. Pt will ascend/descend flight of stairs mod I with NBQC - Provider Therapist: sincere Speech Therapy - Consult Information Patient on Program: Yes Medical Diagnosis: CVA Treatment Diagnosis: -mild dysarthria. -mild-moderate cognitive-linguistic deficits. -mild oral/suspected mild pharyngeal dysphagia - Assessment Memory Impairment: Moderate Speech/Articulation Impairment: Mild Dysphagia/Swallowing Impairment: Mild - Plan Assessment: Pt experiencing decline in level of function with reported increased LLE weakness. RNs and MD aware; Head CT (-) acute changes. Pt now requires min A for transfers, mod A for ambulation with NBQC with LLE dorsiflexor assist MELY wrap required to assist with toe clearance. Pt will continue to benefit from skilled PT intervention to address deficits, reduce fall risk, and maximize functional independence. Recommend d.c to [facility]. - Provider Therapist: Violet Cash License Number: [id number] Recreational Therapy - Participation Participation: Participates in Individual and/or Group Sessions - Attendance Attendance: 3-5 times per week - Activities Leisure Activities: Television - Socialization Level of Socialization: Initiates/interacts freely with care givers and peer - Diversional Time Diversional Time: television - Assessment Assessment/Plan: Pt experiencing decline in level of function with reported increased LLE weakness. RNs and MD aware; Head CT (-) acute changes. Pt now requires min A for transfers, mod A for ambulation with NBQC with LLE dorsiflexor assist MELY wrap required to assist with toe clearance. Pt will continue to benefit from skilled PT intervention to address deficits, reduce fall risk, and maximize functional independence. Recommend d.c to [facility]. - Provider Therapist: Eda Marinelli, IV TECHNICIAN #[id number] Nutrition - Current Diet Current Diet/ Supplement/ Feedings: Heart healthy: 2 gram Na ensure plus 8 ounces 2 per day - Appetite Percent Meal Consumed: 75-100% - Comments Comments: post cva safety and fall precaution medication teachings - Assessment/Goals/Time Frame Assessment/Goals/Time Frame: Pt at low nutritional risk. Follow-up due on 07/12 - Provider Provider: Dagmar Leblanc RD Case Management - Psychosocial Assessment Support Systems: Brenda Hendricks (ex-)- [phone] Psychological Interventions/Needs: Patient is alert and oriented x3, able to verbalize needs, intermittent forgetfulness Discharge Concerns: Patient with limited support at home, homeless-unable to return back to previous residence Patient/Family Meeting: CM met with patient and rehab team Intervention/Goal/Outcome:: 1. PLAN: [facility]>LTC vs home dependent on social support , CM to speak with family regarding termite helper plan. 2. tentative discharge date : 07/07/17. 3. emotional support. 4. continued stay auth, LAD: 07/02. - Discharge Plan Discharge Plan: Subacute care, residential care - Provider Provider: Khusboo Christiano, GRANTS OFFICER, MANAGER HIV License Number: [id number] Rehabilitation Plan - Treatment Plan Treatment Plan: Physical Therapy, Occupational Therapy, Speech, Dietary, Patient /Family Education - Discharge Plan Estimated Date of Discharge: 07/07/17 Discharge to: Subacute, [facility]
--- NOTE | 2017-07-07 13:59 | CP.PCM.PN ---
Subjective - Date & Time of Evaluation Date of Evaluation: 07/07/17 Time of Evaluation: 13:58 - Subjective Subjective: Patient seen in PT, doing well, but lives alone and is not able to be safely discharged at this time Benefitting from therapies ELOS 07/19/17. Continue current care no pain Objective - Vital Signs/Intake and Output Vital Signs (last 24 hours): Temp Pulse Resp BP Pulse Ox 97.5 F L 81 21 114/64 97 07/07/17 08:15 07/07/17 09:20 07/07/17 08:15 07/07/17 09:20 07/07/17 08:15 - Medications Medications: Current Medications Amlodipine Besylate (Norvasc) 10 mg PO DAILY [facility] Last Admin: 07/07/17 09:20 Dose: 10 mg Aspirin (Ecotrin) 81 mg PO DAILY [facility] Last Admin: 07/07/17 09:20 Dose: 81 mg Atorvastatin Calcium (Lipitor) 80 mg PO HS [facility] Last Admin: 07/06/17 21:25 Dose: 80 mg Clopidogrel Bisulfate (Plavix) 75 mg PO DAILY [facility] Last Admin: 07/07/17 09:19 Dose: 75 mg Docusate Sodium (Colace) 100 mg PO BID [facility] Last Admin: 07/07/17 09:19 Dose: 100 mg Enoxaparin Sodium (Lovenox) 40 mg SC DAILY [facility] PRN Reason: Protocol Last Admin: 07/07/17 09:19 Dose: 40 mg Guaifenesin (Robitussin) 100 mg PO Q6 PRN PRN Reason: Cough Last Admin: 07/06/17 21:32 Dose: 100 mg Ibuprofen (Motrin Tab) 400 mg PO Q6 PRN PRN Reason: pain 4-10 Last Admin: 07/06/17 21:29 Dose: 400 mg Lactic Acid (Lac-Hydrin 12% Cream (140 G)) 1 ea TOP BID [facility] Last Admin: 07/07/17 09:19 Dose: 1 applic Lisinopril (Zestril) 10 mg PO DAILY [facility] Last Admin: 07/07/17 09:20 Dose: 10 mg Pantoprazole Sodium (Protonix Ec Tab) 40 mg PO DAILY [facility] Last Admin: 07/07/17 09:20 Dose: 40 mg Prednisolone Acetate (Pred Forte 1% Opht Susp) 1 drop OS Q6 [facility] Last Admin: 07/07/17 13:35 Dose: 1 drop - Labs Labs: 07/06/17 05:35 07/06/17 05:35
[2017-07-08] MEDS: PrednisoLONE 1% OPTH SUSP OS SCH ×4 (05:53→23:55)
[2017-07-08] MEDS: Ammonium Lactate 12% Cream (140 g) TOP SCH ×2 (09:14→17:16)
[2017-07-08] MEDS: Enoxaparin 40 mg Syringe SC SCH (09:15)
[2017-07-08] MEDS: Pantoprazole 40 mg EC Tab PO SCH (09:16)
--- NOTE | 2017-07-08 12:31 | CP.PCM.PN ---
Subjective - Date & Time of Evaluation Date of Evaluation: 07/08/17 Time of Evaluation: 12:31 - Subjective Subjective: Mr. Hendricks was seen and examined at the therapy room. He is alert, oriented in all spheres. He is able to participates in his therapy session. He denies any headache, dizziness, lightheadedness, nausea, or vomiting.He remains with left facial droop,left hemiplegia. He is able to feed himself. Carotid doppler showed both ICA is less than 50%. Echocardiogram showed normal EF. There was no untoward events overnight. Objective - Vital Signs/Intake and Output Vital Signs (last 24 hours): Temp Pulse Resp BP Pulse Ox 98.3 F 58 L 20 124/67 97 07/08/17 10:00 07/08/17 10:00 07/08/17 10:00 07/08/17 10:00 07/08/17 10:00 - Medications Medications: Current Medications Amlodipine Besylate (Norvasc) 10 mg PO DAILY [facility] Last Admin: 07/08/17 09:15 Dose: 10 mg Aspirin (Ecotrin) 81 mg PO DAILY [facility] Last Admin: 07/08/17 09:15 Dose: 81 mg Atorvastatin Calcium (Lipitor) 80 mg PO HS [facility] Last Admin: 07/07/17 21:10 Dose: 80 mg Clopidogrel Bisulfate (Plavix) 75 mg PO DAILY [facility] Last Admin: 07/08/17 09:16 Dose: 75 mg Docusate Sodium (Colace) 100 mg PO BID [facility] Last Admin: 07/08/17 09:14 Dose: 100 mg Enoxaparin Sodium (Lovenox) 40 mg SC DAILY [facility] PRN Reason: Protocol Last Admin: 07/08/17 09:15 Dose: 40 mg Guaifenesin (Robitussin) 100 mg PO Q6 PRN PRN Reason: Cough Last Admin: 07/06/17 21:32 Dose: 100 mg Ibuprofen (Motrin Tab) 400 mg PO Q6 PRN PRN Reason: pain 4-10 Last Admin: 07/07/17 21:10 Dose: 400 mg Lactic Acid (Lac-Hydrin 12% Cream (140 G)) 1 ea TOP BID [facility] Last Admin: 07/08/17 09:14 Dose: 1 applic Lisinopril (Zestril) 10 mg PO DAILY [facility] Last Admin: 07/08/17 09:15 Dose: 10 mg Pantoprazole Sodium (Protonix Ec Tab) 40 mg PO DAILY [facility] Last Admin: 07/08/17 09:16 Dose: 40 mg Prednisolone Acetate (Pred Forte 1% Opht Susp) 1 drop OS Q6 [facility] Last Admin: 07/08/17 05:53 Dose: 1 drop - Labs Labs: 07/06/17 05:35 07/06/17 05:35 - Constitutional Appears: No Acute Distress - Head Exam Head Exam: NORMAL INSPECTION - Neurological Exam Neurological Exam: Alert, Awake, Oriented x3 Neuro motor strength exam: Left Upper Extremity: 2/1, Right Upper Extremity: 5, Left Lower Extremity: 2/1, Right Lower Extremity: 5 Additional comments: Neurological unchanged from previous examination. Assessment and Plan (1) CVA (cerebral vascular accident) Assessment & Plan: Case discussed with Dr. Galaviz, continue all current medical, physical, occupational, and speech therapies. Recommend blood pressure control,keep head of bed elevated at least 30 degrees to maintain brain perfusion. Status: Acute
--- NOTE | 2017-07-08 14:05 | CP.PCM.PN ---
Subjective - Date & Time of Evaluation Date of Evaluation: 07/08/17 Time of Evaluation: 13:59 - Subjective Subjective: pt doing well, tolerating PT nocomplaints hd stable nad Objective - Vital Signs/Intake and Output Vital Signs (last 24 hours): Temp Pulse Resp BP Pulse Ox 98.3 F 58 L 20 124/67 97 07/08/17 10:00 07/08/17 10:00 07/08/17 10:00 07/08/17 10:00 07/08/17 10:00 Vitals Reviewed GEN: WDWN, alert, cooperative HEENT: NCAT, PERRL, EOMI HEART: RRR, +S1S2, NO MRG LUNG: CTAB, NO WRR ABD: soft, NT, ND, No HSM, No masses EXT: normal pedal pulses, normal capillary refill NEURO: awake, alert SKIN: warm, dry PSYCH: normal mood, normal affect - Medications Medications: Current Medications Amlodipine Besylate (Norvasc) 10 mg PO DAILY [facility] Last Admin: 07/08/17 09:15 Dose: 10 mg Aspirin (Ecotrin) 81 mg PO DAILY [facility] Last Admin: 07/08/17 09:15 Dose: 81 mg Atorvastatin Calcium (Lipitor) 80 mg PO HS [facility] Last Admin: 07/07/17 21:10 Dose: 80 mg Clopidogrel Bisulfate (Plavix) 75 mg PO DAILY [facility] Last Admin: 07/08/17 09:16 Dose: 75 mg Docusate Sodium (Colace) 100 mg PO BID [facility] Last Admin: 07/08/17 09:14 Dose: 100 mg Enoxaparin Sodium (Lovenox) 40 mg SC DAILY [facility] PRN Reason: Protocol Last Admin: 07/08/17 09:15 Dose: 40 mg Guaifenesin (Robitussin) 100 mg PO Q6 PRN PRN Reason: Cough Last Admin: 07/06/17 21:32 Dose: 100 mg Ibuprofen (Motrin Tab) 400 mg PO Q6 PRN PRN Reason: pain 4-10 Last Admin: 07/07/17 21:10 Dose: 400 mg Lactic Acid (Lac-Hydrin 12% Cream (140 G)) 1 ea TOP BID [facility] Last Admin: 07/08/17 09:14 Dose: 1 applic Lisinopril (Zestril) 10 mg PO DAILY [facility] Last Admin: 07/08/17 09:15 Dose: 10 mg Pantoprazole Sodium (Protonix Ec Tab) 40 mg PO DAILY [facility] Last Admin: 07/08/17 09:16 Dose: 40 mg Prednisolone Acetate (Pred Forte 1% Opht Susp) 1 drop OS Q6 [facility] Last Admin: 07/08/17 12:47 Dose: 1 drop - Labs Labs: 07/06/17 05:35 07/06/17 05:35 Assessment and Plan - Assessment and Plan (Free Text) Plan: 62 yo male with history of HTN, HLD and ETOH abuse admitted at [facility] [place] on 2017 because of sudden onset of left sided weakness causing him to fall down. Patient was also noted to have difficulty in speech associated with left facial weakness. CT scan showed acute lacunar infarct on the right putamen. He was then transferred to [facility] and admitted at [facility] to continue his PT. On he was noticed to have decreased strength and concern for recurrence of his CVA 1. Acute CVA, now recurrence? Consult neurology, Dr. Chinchilla stat was out of window for tPA administration continue PT/OT continue ASA, Plavix, statin and BP control 2. HTN BP stable Allowing permissive htn as there is concern for recurrent cva holding Amlodipine and Lisinopril 3. HLD Atorvastatin 80mg PO HS 4. DVT prophylaxis Lovenox 40mg SC daily
[2017-07-08] MEDS: guaiFENesin 100 mg/5 ml Syrup UD PO PRN (23:55)
[2017-07-09] MEDS: PrednisoLONE 1% OPTH SUSP OS SCH ×3 (06:01→17:05)
[2017-07-09] MEDS: Ammonium Lactate 12% Cream (140 g) TOP SCH ×2 (08:09→17:03)
[2017-07-09] MEDS: Enoxaparin 40 mg Syringe SC SCH (08:09)
[2017-07-09] MEDS: Pantoprazole 40 mg EC Tab PO SCH (08:10)
[2017-07-09 08:16] LABS: HEMOGLOBIN 13.5 g/dL (12.0-18.0); MEAN CELL VOLUME 90.7 fl (80.0-94.0); MEAN CORPUSCULAR HEMOGLOBIN 31.4 pg (27.0-31.0); MEAN CORPUSCULAR HGB CONC 34.6 g/dL (33.0-37.0); RBC 4.29 Mil/uL (4.40-5.90)
[2017-07-09 08:29] LABS: BLOOD UREA NITROGEN 15 mg/dl (9-20); CALCIUM 9.4 mg/dL (8.4-10.2); GFR AFRICAN-AMERICAN > 60; GFR NON-AFRICAN AMERICAN > 60
--- NOTE | 2017-07-09 09:38 | CP.PCM.PN ---
Subjective - Date & Time of Evaluation Date of Evaluation: 07/09/17 Time of Evaluation: 09:36 - Subjective Subjective: Mr. Hendricks was seen and examined at the therapy room. He is alert, oriented in all spheres. He is able to follow simple commands. He denies any headache, dizziness, lightheadedness, nausea, or vomiting.He remains with left facial droop,left hemiplegia. He is able to feed himself. There was no untoward events overnight. Objective - Vital Signs/Intake and Output Vital Signs (last 24 hours): Temp Pulse Resp BP Pulse Ox 96.6 F L 76 20 144/70 96 07/08/17 20:21 07/09/17 08:11 07/08/17 20:21 07/09/17 08:11 07/08/17 20:21 - Medications Medications: Current Medications Amlodipine Besylate (Norvasc) 10 mg PO DAILY [facility] Last Admin: 07/09/17 08:11 Dose: 10 mg Aspirin (Ecotrin) 81 mg PO DAILY [facility] Last Admin: 07/09/17 08:09 Dose: 81 mg Atorvastatin Calcium (Lipitor) 80 mg PO HS [facility] Last Admin: 07/08/17 21:36 Dose: 80 mg Clopidogrel Bisulfate (Plavix) 75 mg PO DAILY [facility] Last Admin: 07/09/17 08:09 Dose: 75 mg Docusate Sodium (Colace) 100 mg PO BID [facility] Last Admin: 07/09/17 08:09 Dose: 100 mg Enoxaparin Sodium (Lovenox) 40 mg SC DAILY [facility] PRN Reason: Protocol Last Admin: 07/09/17 08:09 Dose: 40 mg Guaifenesin (Robitussin) 100 mg PO Q6 PRN PRN Reason: Cough Last Admin: 07/08/17 23:55 Dose: 100 mg Ibuprofen (Motrin Tab) 400 mg PO Q6 PRN PRN Reason: pain 4-10 Last Admin: 07/08/17 21:39 Dose: 400 mg Lactic Acid (Lac-Hydrin 12% Cream (140 G)) 1 ea TOP BID [facility] Last Admin: 07/09/17 08:09 Dose: 1 applic Lisinopril (Zestril) 10 mg PO DAILY [facility] Last Admin: 07/09/17 08:10 Dose: 10 mg Pantoprazole Sodium (Protonix Ec Tab) 40 mg PO DAILY [facility] Last Admin: 07/09/17 08:10 Dose: 40 mg Prednisolone Acetate (Pred Forte 1% Opht Susp) 1 drop OS Q6 [facility] Last Admin: 07/09/17 06:01 Dose: 1 drop - Labs Labs: 07/09/17 08:07 07/09/17 08:07 - Constitutional Appears: No Acute Distress - Head Exam Head Exam: NORMAL INSPECTION - Eye Exam Pupil Exam: PERRL - Neurological Exam Neuro motor strength exam: Left Upper Extremity: 2/1, Right Upper Extremity: 5, Left Lower Extremity: 2/1, Right Lower Extremity: 5 Additional comments: Neurological unchanged from previous examination. Assessment and Plan (1) CVA (cerebral vascular accident) Assessment & Plan: Case discussed with Dr. Galaviz, continue all current medical, physical, occupational, and speech therapies. Recommend blood pressure control,keep head of bed elevated at least 30 degrees, hydration to maintain brain perfusion. Status: Acute
[2017-07-09 13:45] VITALS: BP 129/69; PULSE 79; RESP 19; TEMP 97.3; O2SAT 98
--- NOTE | 2017-07-09 15:22 | CP.PCM.DIS ---
Provider - Provider Date of Admission: 06/26/17 19:34 Attending physician: Arron Trent MD Consults: Dr Guillaume Hayes Time Spent in preparation of Discharge (in minutes): 25 Diagnosis - Discharge Diagnosis (1) CVA (cerebral vascular accident) Status: Acute Comment: continue ASA, Plavix and statin. continue PT at [facility] (2) HTN (hypertension) Status: Chronic Comment: BP stable. continue Amlodipine and Lisinopril (3) HLD (hyperlipidemia) Status: Chronic Comment: continue Atorvastatin Hospital Course - Lab Results Lab Results: Most Recent Lab Values WBC 8.0 K/uL (4.8-10.8) 07/09/17 08:07 RBC 4.29 Mil/uL (4.40-5.90) L 07/09/17 08:07 Hgb 13.5 g/dL (12.0-18.0) 07/09/17 08:07 Hct 38.9 % (35.0-51.0) 07/09/17 08:07 MCV 90.7 fl (80.0-94.0) 07/09/17 08:07 MCH 31.4 pg (27.0-31.0) H 07/09/17 08:07 MCHC 34.6 g/dL (33.0-37.0) 07/09/17 08:07 RDW 13.0 % (11.5-14.5) 07/09/17 08:07 Plt Count 193 K/uL (130-400) 07/09/17 08:07 MPV 9.5 fl (7.2-11.7) 06/27/17 04:00 Neut % (Auto) 67.9 % (50.0-75.0) 06/27/17 04:00 Lymph % (Auto) 18.0 % (20.0-40.0) L 06/27/17 04:00 [place] % (Auto) 11.1 % (0.0-10.0) H 06/27/17 04:00 Eos % (Auto) 2.6 % (0.0-4.0) 06/27/17 04:00 Baso % (Auto) 0.4 % (0.0-2.0) 06/27/17 04:00 Neut # (Auto) 4.3 K/uL (1.8-7.0) 06/27/17 04:00 Lymph # (Auto) 1.1 K/uL (1.0-4.3) 06/27/17 04:00 [place] # (Auto) 0.7 K/uL (0.0-0.8) 06/27/17 04:00 Eos # (Auto) 0.2 K/uL (0.0-0.7) 06/27/17 04:00 Baso # (Auto) 0.0 K/uL (0.0-0.2) 06/27/17 04:00 Sodium 141 mmol/l (132-148) 07/09/17 08:07 Potassium 4.1 MMOL/L (3.6-5.0) 07/09/17 08:07 Chloride 101 mmol/L (98-107) 07/09/17 08:07 Carbon Dioxide 26 mmol/L (22-30) 07/09/17 08:07 Anion Gap 18 (10-20) 07/09/17 08:07 BUN 15 mg/dl (9-20) 07/09/17 08:07 Creatinine 0.7 mg/dl (0.8-1.5) L 07/09/17 08:07 Est GFR ( Amer) > 60 07/09/17 08:07 Est GFR (Non-Af Amer) > 60 07/09/17 08:07 Random Glucose 117 mg/dL (75-110) H 07/09/17 08:07 Hemoglobin A1c 5.6 % (4.2-6.5) 07/04/17 10:55 Calcium 9.4 mg/dL (8.4-10.2) 07/09/17 08:07 Total Bilirubin 0.5 mg/dl (0.2-1.3) 06/27/17 04:00 AST 41 U/L (17-59) 06/27/17 04:00 ALT 83 U/L (21-72) H 06/27/17 04:00 Alkaline Phosphatase 53 U/L (38-126) 06/27/17 04:00 Total Protein 7.2 G/DL (6.3-8.2) 06/27/17 04:00 Albumin 4.1 g/dL (3.5-5.0) 06/27/17 04:00 Globulin 3.0 gm/dL (2.2-3.9) 06/27/17 04:00 Albumin/Globulin Ratio 1.3 (1.0-2.1) 06/27/17 04:00 Vitamin B12 559 pg/mL (239-931) 07/03/17 14:20 25-OH Vitamin D Total 30.9 NG/ML (30.0-100.0) 07/03/17 14:20 TSH 3rd Generation 0.77 mIU/ML (0.46-4.68) 07/03/17 14:20 - Hospital Course Hospital Course: 62 yo male with history of HTN, HLD and ETOH abuse admitted at [facility] on 2017 because of sudden onset of left sided weakness causing him to fall down. Patient was also noted to have difficulty in speech associated with left facial weakness. CT scan showed acute lacunar infarct on the right putamen. He was transferred to [facility] and admitted at [facility] for continuation of PT. Patient did well but would need further PT. He was accepted at [facility] at [facility] in [place], [place]. Discharge Exam - Head Exam Head Exam: NORMAL INSPECTION - Eye Exam Eye Exam: absent: Scleral icterus - ENT Exam ENT Exam: Mucous Membranes Moist - Respiratory Exam Respiratory Exam: absent: Rales, Rhonchi, Wheezes, Respiratory Distress - Cardiovascular Exam Cardiovascular Exam: REGULAR RHYTHM, +S1, +S2 - GI/Abdominal Exam GI & Abdominal Exam: Soft. absent: Tenderness - Rectal Exam Rectal Exam: Deferred - Neurological Exam Neurological exam: Alert, Oriented x3 - Psychiatric Exam Psychiatric exam: Normal Affect - Skin Skin Exam: Dry, Intact Discharge Plan - Follow Up Plan Condition: GOOD Disposition: REHAB FACILITY/REHAB UNIT
== END 2017-07-09 18:35 | DRG 12 ==
PROC: F08Z2FZ Grooming/Personal Hygiene Treatment using Assistive, Adaptive, Supportive or Protective Equipment (ICD-10-PCS; principal; 2017-06-26)
PROC: F08Z1FZ Dressing Techniques Treatment using Assistive, Adaptive, Supportive or Protective Equipment (ICD-10-PCS; 2017-06-26)
PROC: F07Z5FZ Bed Mobility Treatment using Assistive, Adaptive, Supportive or Protective Equipment (ICD-10-PCS; 2017-06-26)
PROC: F07Z8FZ Transfer Training Treatment using Assistive, Adaptive, Supportive or Protective Equipment (ICD-10-PCS; 2017-06-26)
PROC: F06Z6ZZ Communicative/Cognitive Integration Skills Treatment (ICD-10-PCS; 2017-06-26)
PROC: F07Z9FZ Gait Training/Functional Ambulation Treatment using Assistive, Adaptive, Supportive or Protective Equipment (ICD-10-PCS; 2017-06-26)
PROC: F07L6FZ Therapeutic Exercise Treatment of Musculoskeletal System - Lower Back / Lower Extremity using Assistive, Adaptive, Supportive or Protective Equipment (ICD-10-PCS; 2017-06-26)
DX: I69.354 Hemiplegia and hemiparesis following cerebral infarction affecting left non-dominant side (principal); E78.5 Hyperlipidemia, unspecified; I10 Essential (primary) hypertension; I69.392 Facial weakness following cerebral infarction; E78.00 Pure hypercholesterolemia, unspecified; Z87.891 Personal history of nicotine dependence; F43.20 Adjustment disorder, unspecified; K59.00 Constipation, unspecified